=== PATIENT | female | born 2000 ===

== ENCOUNTER 2020-03-20 12:16 | Inpatient (IN) | payer MEDICAID ==
[2020-03-20] MEDS ORDERED: BUTORPHANOL 2 MG/1 ML INJ IV PRN ×2 (15:10)
[2020-03-20] MEDS ORDERED: ePHEDrine SULFATE 50 MG/1 ML INJ IV PRN (15:10)
[2020-03-20] MEDS ORDERED: MINERAL OIL 30 ML ORAL LIQD PO PRN (15:10)
[2020-03-20] MEDS ORDERED: LIDOCAINE (2%) 20 MG/1 ML VIAL 20 ML MDV INFILTRATI ONE (15:10)
[2020-03-20] MEDS ORDERED: fentaNYL 100 MCG/2 ML INJ IV PRN (15:10)
[2020-03-20] MEDS ORDERED: TERBUTALINE 1 MG/1 ML INJ SUB-Q PRN (15:10)
[2020-03-20] MEDS: LACTATED RINGERS 1,000 ML IV SCH (15:53)
[2020-03-20] MEDS ORDERED: OXYTOCIN DRIP 30 UNITS/500 ML BAG IV SCH ×2 (16:00)
[2020-03-20 16:13] LABS: Hematocrit 38.8 % (30.3-42.9); Hemoglobin 12.9 gm/dl (10.1-14.3); Mean Corpuscular HGB Conc 33 % (30-34); Mean Corpuscular Volume 87 fl (79-97); Platelet Count 226 K/mm3 (140-440); Red Blood Count 4.48 M/mm3 (3.65-5.03); Red Cell Distribution Width 15.8 % (13.2-15.2)
--- NOTE | 2020-03-20 18:03 | Consultation ---
Consult Note - Parent Education Parent(s) demonstrated understanding of all the information:: Yes Additional Comment: Called for consult for term baby with diagnosis of Trisomy 13 on Panorama. Imaging System Administrator line used: ID [id number]. Mother was with Aunt at the time of consult. Mother reports that she found out about trisomy 13 diagnosis yesterday and reports a previously negative genetic test. I described some of the typical features of trisomy 13 including small eyes, clenched fists and cleft palate, congenital heart defects that may require surgical intervention, seizures & apnea. We discussed typical survival of days to weeks with a very small percentage ~1% surviving up to 1 year and mother was already aware of this data. I discsussed the potential for unsuccessful delivery room stabilization depending on the severity of disease; NICU admission and potential for significant respiratory support, the need for further testing to confirm diagnosis and the need for a cardiac echo following delivery; the possibility of futility with attempts to support life. Mother demonstrated understanding of all the information - she was in tears, however stated that she understood and had no questions at this time. I encouraged her to reach out with any further questions Assessment and Plan - Assessment Baby's gender: Male - Plan Plan: NICU will attend delivery Please call NICU with questions
[2020-03-20] MEDS ORDERED: AMPICILLIN/NS 2 GM/100 ML 2 GM/100 ML BAG IV ONE ×2 (18:23)
--- NOTE | 2020-03-20 18:24 | History and Physical Report ---
History of Present Illness Date of examination: 03/20/20 Date of admission: 03/20/20 12:16 Chief complaint: "I was sent here by my doctor" History of present illness: 20 y/o female presented to [facility] L&D for an IOL r/t GDM, LGA, polyhydramnios, MO, and NIPT pos for trisomy 13. Pt states she was sent here by her provider at [facility] ob-automation and controls instructor [facility] location. Pt admitted to active . She initiated her pnc in [place], moved to [place] had 1 visit there and ended up at [facility] at 32 2/7 wks. 1st US was done in [place]. Pt has been co-managed by [facility] r/t to a pos NIPT trisomy 13, GDM diet controlled, LGA, MO, and Polyhydramnios. She was tx'd at [facility] for a uti pos for GBS, otherwise no other medical problems were noted. Surg/social hx unremarkable. Family hx of DM type 1. Pt was admitted to L&D for delivery. LABS: A pos AB screen neg Rubella Immune, RPR -NR, HIV neg Hgb 12.2 1 HR GTT 216 Urine GBS pos -tx'd Past History Past Medical History: no pertinent history Past Surgical History: no surgical history Family/Genetic History: diabetes Social history: no significant social history - Obstetrical History Expected Date of Delivery: 04/01/20 Actual Gestation: 38 Week(s) 2 Day(s) : 2 Para: 1 Hx # Term Pregnancies: 1 Medications and Allergies Allergies Allergy/AdvReac Type Severity Reaction Status Date / Time No Known Allergies Allergy Verified 03/20/20 13:35 Home Medications Medication Instructions Recorded Confirmed Last Taken Type Vitamin 1 tab PO DAILY 03/20/20 03/20/20 03/19/20 History Active Meds: Active Medications Butorphanol Tartrate (Butorphanol 2 Mg/1 Ml Inj) 1 mg IV Q2H PRN PRN Reason: Pain, Moderate(4-6) LABOR PAIN Butorphanol Tartrate (Butorphanol 2 Mg/1 Ml Inj) 2 mg IV Q2H PRN PRN Reason: Pain , Severe (7-10) Ephedrine Sulfate (Ephedrine Sulfate 50 Mg/1 Ml Inj) 10 mg IV Q2M PRN PRN Reason: Hypotension Fentanyl (Fentanyl 100 Mcg/2 Ml Inj) 100 mcg IV Q2H PRN PRN Reason: Pain,Severe (7-10) LABOR PAIN Oxytocin/Sodium Chloride (Pitocin/Ns 30 Unit/500ml) 30 units in 500 mls @ 2 mls/hr IV TITR MICA; Protocol Lactated Ringer's (Lactated Ringers) 1,000 mls @ 125 mls/hr IV DIRECT MICA Last Admin: 03/20/20 15:53 Dose: 125 mls/hr Documented by: Oxytocin/Sodium Chloride (Pitocin/Ns 30 Unit/500ml) 30 units in 500 mls @ 40 mls/hr IV TITR MICA; Protocol Mineral Oil (Mineral Oil 30 Ml Oral Liqd) 30 ml PO QHS PRN PRN Reason: Constipation Terbutaline Sulfate (Terbutaline 1 Mg/1 Ml Inj) 0.25 mg SUB-Q ONCE PRN PRN Reason: Hyperstimulation/Hypertonicity Review of Systems All systems: negative Eyes: deferred Ears, nose, mouth and throat: deferred Breasts: normal - Vital Signs Vital signs: Vital Signs Pulse Pulse Ox 106 H 98 03/20/20 12:57 03/20/20 12:57 Temp Pulse Resp BP Pulse Ox 99.1 F 116 H 18 126/83 97 03/20/20 13:35 03/20/20 17:50 03/20/20 13:35 03/20/20 17:43 03/20/20 17:50 - Physical Exam Breasts: Positive: normal Abdomen: Positive: normal appearance, soft, normal bowel sounds, other (gravid) Genitourinary (Female): Positive: normal external genitalia, normal perenium Vulva: both: normal Vagina: Positive: normal moisture Uterus: Positive: enlarged, normal contour, other (gravid) Adnexa: both: normal Anus/Rectum: Positive: normal perianal skin Extremities: Positive: normal - Obstetrical FHR: auscultation normal, category 1 Uterine Contraction Monitor Mode: External Cervical Dilatation: 5 Cervical Effacement Percentage: 75 station: -2 Uterine Contraction Frequency (min): q3-6/min Uterine Contraction Pattern: Regular Uterine Tone Measurement Phase: Resting Uterine Contraction Intensity: Mild Results Result Diagrams: 03/20/20 14:53 Abnormal lab results 03/20/20 Range/Units 14:53 RDW 15.8 H (13.2-15.2) % All other labs normal. Assessment and Plan A: IUP@ 38.2 wks GDM diet controlled LGA, polydramnios, Abnormal NIPT pos trisomy 13 + GBS urine, MO P: Admit to L&D Notify [facility] team of pt's admin Continuous monitoring Pain med/Epidural prn FSBS AC and HS GBS prophylaxis Anticipate POC was notified
[2020-03-20] MEDS ORDERED: ceFAZolin/NS 1 GM/50 ML 1 GM/50 ML BAG IV SCH (22:00)
[2020-03-20] MEDS: AMPICILLIN/NS 1 GM/50 ML 1 GM/50 ML BAG IV SCH (22:32)
[2020-03-20] MEDS ORDERED: ONDANSETRON 4 MG/2 ML INJ IV PRN (23:15)
[2020-03-20] MEDS ORDERED: diphenhydrAMINE 50 MG/ML VIAL IV PRN (23:15)
[2020-03-20] MEDS ORDERED: NALOXONE 2 MG/2 ML INJ IV PRN (23:15)
[2020-03-20] MEDS ORDERED: NalbUPHINE 10 MG/1 ML INJ IV PRN (23:15)
--- NOTE | 2020-03-20 23:44 | Anesthesia Consultation ---
Anesthesia Consult and Med Hx Date of service: 03/20/20 - Airway Anesthetic Teeth Evaluation: Good ROM Head & Neck: Adequate Mental/Hyoid Distance: Adequate Mallampati Class: Class II Intubation Access Assessment: Probably Good - Pulmonary Exam CTA: Yes - Cardiac Exam Cardiac Exam: RRR - Pre-Operative Health Status ASA Pre-Surgery Classification: ASA2 Proposed Anesthetic Plan: Epidural - Pulmonary Hx Smoking: No Hx Asthma: No COPD: No Hx Pneumonia: No Hx Sleep Apnea: No - Cardiovascular System Hx Hypertension: No Hx Heart Attack/AMI: No Hx Angina: No - Central Nervous System Hx Seizures: No Hx Psychiatric Problems: No - Gastrointestinal Hx Gastroesophageal Reflux Disease: No - Endocrine Hx Renal Disease: No Hx End Stage Renal Disease: No Hx Insulin Dependent Diabetes: No Hx Non-Insulin Dependent Diabetes: Yes Hx Hypothyroidism: No Hx Hyperthyroidism: No - Hematic Hx Anemia: No Hx Sickle Cell Disease: No - Other Systems Hx Alcohol Use: No
[2020-03-20] MEDS ORDERED: fentaNYL-BUPIV 2 MCG/ML-0.125% 200 MCG/100 ML BAG EPIDURAL SCH (23:45)
--- NOTE | 2020-03-20 23:45 | Progress Note ---
Labor Epidural - Labor Epidural Start Time: 23:20 Stop Time: 23:40 Performed by:: JENNY CASTILLO Procedure: Patient is requesting a laboring epidural for laboring pain. Patient IDed, H&P reviewed, all questions and concerns were answered, and consent was signed. Timeout was performed at bedside. Patient in sitting position. Sterile prep and drape was performed. 3ml of 1% lidocaine skin wheal at L[3]- L [4]. 18- gauge Touhy epidural needle was advanced to loss of resistance with air technique. Negative CSF negative blood. Epidural catheter advanced to [12] centimeters. [-] Aspiration [-] test dose. Sterile dressing applied. Patient tolerated procedure.
--- NOTE | 2020-03-21 00:07 | Progress Note ---
Assessment and Plan A: IUP@ 38.2 wks LGA, polyhydramnios + GBS, GDM p: Continue monitoring AROM (cl fluid) Anticipate Subjective - Subjective Date of service: 03/21/20 Principal diagnosis: IUP@ 38.2 wks Interval history: 20 y/o female presented to [facility] L&D for an IOL r/t GDM, LGA, polyhydramnios, MO, and NIPT pos for trisomy 13. Pt states she was sent here by her provider at [facility] ob-hand model [facility] location. Pt admitted to active . She initiated her pnc in [place], moved to [place] had 1 visit there and ended up at [facility] at 32 2/7 wks. 1st US was done in [place]. Pt has been co-managed by [facility] r/t to a pos NIPT trisomy 13, GDM diet controlled, LGA, MO, and Polyhydramnios. She was tx'd at [facility] for a uti pos for GBS, otherwise no other medical problems were noted. Surg/social hx unremarkable. Family hx of DM type 1. Pt was admitted to L&D for delivery. LABS: A pos AB screen neg Rubella Immune, RPR -NR, HIV neg Hgb 12.2 1 HR GTT 216 Urine GBS pos -tx'd Patient reports: movement normal Objective - Vital Signs Vital Signs: Vital Signs - 12hr 03/20/20 03/20/20 03/20/20 12:57 13:02 13:07 Temperature Pulse Rate 106 H 100 H 99 H Respiratory Rate Blood Pressure O2 Sat by Pulse 98 98 97 Oximetry 03/20/20 03/20/20 03/20/20 13:12 13:17 13:22 Temperature Pulse Rate 104 H 104 H 112 H Respiratory Rate Blood Pressure O2 Sat by Pulse 97 97 98 Oximetry 03/20/20 03/20/20 03/20/20 13:27 13:32 13:35 Temperature 99.1 F Pulse Rate 101 H 96 H Respiratory 18 Rate Blood Pressure O2 Sat by Pulse 97 97 Oximetry 03/20/20 03/20/20 03/20/20 13:37 13:42 13:47 Temperature Pulse Rate 105 H 104 H 103 H Respiratory Rate Blood Pressure O2 Sat by Pulse 97 96 96 Oximetry 01/07/21 01/07/21 01/07/21 13:52 13:57 14:02 Temperature Pulse Rate 101 H 98 H 109 H Respiratory Rate Blood Pressure O2 Sat by Pulse 96 97 98 Oximetry 03/20/20 03/20/20 03/20/20 14:07 14:12 14:17 Temperature Pulse Rate 96 H 101 H 98 H Respiratory Rate Blood Pressure O2 Sat by Pulse 97 97 97 Oximetry 03/20/20 03/20/20 03/20/20 14:22 14:27 14:32 Temperature Pulse Rate 92 H 100 H 94 H Respiratory Rate Blood Pressure O2 Sat by Pulse 99 98 98 Oximetry 03/20/20 03/20/20 03/20/20 14:37 14:38 14:44 Temperature Pulse Rate 95 H 74 Respiratory Rate Blood Pressure O2 Sat by Pulse 97 88 83 L Oximetry 03/20/20 03/20/20 03/20/20 14:49 14:51 14:58 Temperature Pulse Rate 105 H Respiratory Rate Blood Pressure 118/77 O2 Sat by Pulse 79 L 77 L Oximetry 03/20/20 03/20/20 03/20/20 15:08 15:35 15:40 Temperature Pulse Rate 95 H 90 107 H Respiratory Rate Blood Pressure O2 Sat by Pulse 0 L 99 97 Oximetry 03/20/20 03/20/20 03/20/20 15:43 15:45 15:50 Temperature Pulse Rate 102 H 103 H 107 H Respiratory Rate Blood Pressure 124/84 O2 Sat by Pulse 97 97 Oximetry 03/20/20 03/20/20 03/20/20 15:55 16:00 16:05 Temperature Pulse Rate 113 H 109 H 105 H Respiratory Rate Blood Pressure O2 Sat by Pulse 98 96 97 Oximetry 03/20/20 03/20/20 03/20/20 16:10 16:14 16:15 Temperature Pulse Rate 108 H 111 H 122 H Respiratory Rate Blood Pressure 125/79 O2 Sat by Pulse 97 94 96 Oximetry 03/20/20 03/20/20 03/20/20 16:20 16:25 16:30 Temperature Pulse Rate 119 H 115 H 98 H Respiratory Rate Blood Pressure O2 Sat by Pulse 97 97 97 Oximetry 03/20/20 03/20/20 03/20/20 16:35 16:40 16:43 Temperature Pulse Rate 116 H 110 H 107 H Respiratory Rate Blood Pressure 131/83 O2 Sat by Pulse 97 97 Oximetry 03/20/20 03/20/2003/20/21 16:45 16:50 16:55 Temperature Pulse Rate 104 H 99 H 103 H Respiratory Rate Blood Pressure O2 Sat by Pulse 97 97 96 Oximetry 03/20/20 03/20/20 03/20/20 17:00 17:05 17:10 Temperature Pulse Rate 121 H 110 H 97 H Respiratory Rate Blood Pressure O2 Sat by Pulse 97 96 99 Oximetry 03/20/20 03/20/20 03/20/20 17:12 17:13 17:15 Temperature Pulse Rate 103 H 106 H 108 H Respiratory Rate Blood Pressure 124/78 O2 Sat by Pulse 93 96 Oximetry 03/20/20 03/20/20 03/20/20 17:20 17:25 17:30 Temperature Pulse Rate 114 H 107 H 107 H Respiratory Rate Blood Pressure O2 Sat by Pulse 97 97 97 Oximetry 03/20/20 03/20/20 03/20/20 17:35 17:40 17:43 Temperature Pulse Rate 134 H 107 H 114 H Respiratory Rate Blood Pressure 126/83 O2 Sat by Pulse 95 97 Oximetry 03/20/20 03/20/20 03/20/20 17:45 17:50 17:55 Temperature Pulse Rate 99 H 116 H 103 H Respiratory Rate Blood Pressure O2 Sat by Pulse 97 97 98 Oximetry 03/20/20 03/20/20 03/20/20 18:00 18:05 18:10 Temperature Pulse Rate 118 H 109 H 116 H Respiratory Rate Blood Pressure O2 Sat by Pulse 98 97 97 Oximetry 03/20/20 03/20/20 03/20/20 18:13 18:15 18:20 Temperature Pulse Rate 107 H 113 H 101 H Respiratory Rate Blood Pressure 121/76 O2 Sat by Pulse 98 97 Oximetry 03/20/20 03/20/20 03/20/20 18:25 18:30 18:35 Temperature Pulse Rate 109 H 113 H 114 H Respiratory Rate Blood Pressure O2 Sat by Pulse 97 97 97 Oximetry 03/20/20 03/20/20 03/20/20 18:40 18:43 18:45 Temperature Pulse Rate 110 H 110 H 115 H Respiratory Rate Blood Pressure 176/88 O2 Sat by Pulse 97 98 Oximetry 03/20/20 03/20/20 03/20/20 18:50 18:55 19:00 Temperature Pulse Rate 115 H 121 H 108 H Respiratory Rate Blood Pressure 128/84 O2 Sat by Pulse 97 98 98 Oximetry 03/20/20 03/20/20 03/20/20 19:05 19:10 19:12 Temperature Pulse Rate 109 H 119 H 110 H Respiratory Rate Blood Pressure 123/82 O2 Sat by Pulse 97 97 Oximetry 03/20/20 03/20/20 03/20/20 19:15 19:20 19:25 Temperature 98.5 F Pulse Rate 106 H 110 H 113 H Respiratory Rate Blood Pressure O2 Sat by Pulse 97 97 97 Oximetry 03/20/20 03/20/20 03/20/20 19:30 19:35 19:40 Temperature Pulse Rate 110 H 116 H 108 H Respiratory Rate Blood Pressure O2 Sat by Pulse 97 98 97 Oximetry 03/20/20 03/20/20 03/20/20 19:42 19:45 19:50 Temperature Pulse Rate 105 H 113 H 106 H Respiratory Rate Blood Pressure 125/81 O2 Sat by Pulse 96 97 Oximetry 03/20/20 03/20/20 03/20/20 19:55 20:00 20:05 Temperature Pulse Rate 101 H 106 H 110 H Respiratory Rate Blood Pressure O2 Sat by Pulse 97 97 98 Oximetry 03/20/20 03/20/20 03/20/20 20:10 20:12 20:15 Temperature Pulse Rate 97 H 94 H 104 H Respiratory Rate Blood Pressure 127/85 O2 Sat by Pulse 98 98 Oximetry 03/20/20 03/20/20 03/20/20 20:20 20:25 20:30 Temperature Pulse Rate 101 H 107 H 106 H Respiratory Rate Blood Pressure O2 Sat by Pulse 98 98 96 Oximetry 03/20/20 03/20/20 03/20/20 20:35 20:40 20:44 Temperature Pulse Rate 100 H 102 H 104 H Respiratory Rate Blood Pressure 128/88 O2 Sat by Pulse 98 98 Oximetry 03/20/20 03/20/20 03/20/20 20:45 20:50 20:55 Temperature Pulse Rate 109 H 112 H 105 H Respiratory Rate Blood Pressure O2 Sat by Pulse 98 98 97 Oximetry 03/20/20 03/20/20 03/20/20 20:59 21:00 21:05 Temperature Pulse Rate 118 H 109 H 103 H Respiratory Rate Blood Pressure O2 Sat by Pulse 93 98 98 Oximetry 01/07/21 01/07/21 01/07/21 21:10 21:12 21:15 Temperature Pulse Rate 109 H 104 H 98 H Respiratory Rate Blood Pressure 133/88 O2 Sat by Pulse 98 98 Oximetry 03/20/20 03/20/20 03/20/20 21:20 21:25 21:30 Temperature Pulse Rate 120 H 99 H 104 H Respiratory Rate Blood Pressure O2 Sat by Pulse 98 98 98 Oximetry 03/20/20 03/20/20 03/20/20 21:35 21:40 21:44 Temperature Pulse Rate 109 H 102 H 101 H Respiratory Rate Blood Pressure 136/85 O2 Sat by Pulse 98 97 Oximetry 03/20/20 03/20/20 03/20/20 21:45 21:50 21:55 Temperature Pulse Rate 99 H 102 H 99 H Respiratory Rate Blood Pressure O2 Sat by Pulse 98 97 97 Oximetry 03/20/20 03/20/20 03/20/20 22:00 22:05 22:10 Temperature Pulse Rate 102 H 91 H 104 H Respiratory Rate Blood Pressure O2 Sat by Pulse 96 96 98 Oximetry 03/20/20 03/20/20 03/20/20 22:13 22:15 22:20 Temperature Pulse Rate 115 H 102 H 106 H Respiratory Rate Blood Pressure 130/87 O2 Sat by Pulse 94 97 98 Oximetry 03/20/20 03/20/20 03/20/20 22:25 22:30 22:35 Temperature Pulse Rate 103 H 95 H 101 H Respiratory Rate Blood Pressure O2 Sat by Pulse 97 98 99 Oximetry 03/20/20 03/20/20 03/20/20 22:40 22:43 22:45 Temperature Pulse Rate 106 H 97 H 101 H Respiratory Rate Blood Pressure 125/83 O2 Sat by Pulse 99 99 Oximetry 03/20/20 03/20/20 03/20/20 22:50 22:55 23:00 Temperature Pulse Rate 100 H 104 H 101 H Respiratory Rate Blood Pressure O2 Sat by Pulse 98 98 98 Oximetry 03/20/20 03/20/20 03/20/20 23:05 23:10 23:13 Temperature Pulse Rate 98 H 99 H 93 H Respiratory Rate Blood Pressure 127/81 O2 Sat by Pulse 99 99 Oximetry 03/20/20 03/20/20 03/20/20 23:15 23:19 23:20 Temperature Pulse Rate 110 H 54 L 69 Respiratory Rate Blood Pressure O2 Sat by Pulse 99 88 84 Oximetry 03/20/20 03/20/20 03/20/20 23:25 23:28 23:30 Temperature Pulse Rate 99 H 99 H 100 H Respiratory Rate Blood Pressure 123/81 121/79 O2 Sat by Pulse 99 99 Oximetry 03/20/20 03/20/20 03/20/20 23:32 23:34 23:35 Temperature Pulse Rate 104 H 107 H 98 H Respiratory Rate Blood Pressure 123/83 116/75 O2 Sat by Pulse 98 Oximetry 03/20/20 03/20/20 03/20/20 23:36 23:38 23:40 Temperature Pulse Rate 106 H 100 H 90 Respiratory Rate Blood Pressure 129/60 119/62 115/63 O2 Sat by Pulse 98 Oximetry 03/20/20 03/20/20 03/20/20 23:42 23:44 23:45 Temperature Pulse Rate 91 H 90 98 H Respiratory Rate Blood Pressure 116/63 111/59 O2 Sat by Pulse 97 Oximetry 03/20/20 03/20/20 03/20/20 23:46 23:48 23:50 Temperature Pulse Rate 100 H 98 H Respiratory Rate Blood Pressure 105/55 107/57 105/58 O2 Sat by Pulse 98 Oximetry 03/20/20 03/20/20 03/20/20 23:52 23:54 23:55 Temperature Pulse Rate 98 H 96 H 90 Respiratory Rate Blood Pressure 105/57 102/57 O2 Sat by Pulse 98 Oximetry 03/20/20 03/20/20 03/21/20 23:56 23:58 00:00 Temperature Pulse Rate 103 H 80 98 H Respiratory Rate Blood Pressure 98/56 110/60 105/59 O2 Sat by Pulse 98 Oximetry - Exam Breasts: normal Abdomen: Present: normal appearance, soft, other (GRAVID) Vulva: both: normal Uterus: Present: normal, other (GRAVID) FHR: auscultation normal Uterine Contraction Monitor Mode: External Cervical Dilatation: 8 Cervical Effacement Percentage: 100 station: -1 Uterine Contraction Frequency (min): Q2-3/min Uterine Contraction Pattern: Regular Uterine Tone Measurement Phase: Resting Uterine Contraction Intensity: Mild Extremities: normal - Labs Labs: Abnormal Labs 03/20/20 14:53 RDW 15.8 H Laboratory Results - last 24 hr 03/20/20 03/20/20 03/20/20 14:53 14:53 17:48 WBC 11.0 RBC 4.48 Hgb 12.9 Hct 38.8 MCV 87 MCH 29 MCHC 33 RDW 15.8 H Plt Count 226 POC Glucose 76 Blood Type A POSITIVE Antibody Screen Negative
[2020-03-21] MEDS: AMPICILLIN/NS 1 GM/50 ML 1 GM/50 ML BAG IV SCH ×5 (02:34→18:34)
--- NOTE | 2020-03-21 03:58 | Progress Note ---
Subjective - Subjective Date of service: 03/21/20 Principal diagnosis: IUP@ 38.2 wks Interval history: 20 y/o female presented to [facility] L&D for an IOL r/t GDM, LGA, polyhydramnios, MO, and NIPT pos for trisomy 13. Pt states she was sent here by her provider at [facility] location. Pt admitted to active . She initiated her pnc in [place], moved to [place] had 1 visit there and ended up at [facility] at 32 2/7 wks. 1st US was done in [place]. Pt has been co-managed by [facility] r/t to a pos NIPT trisomy 13, GDM diet controlled, LGA, MO, and Polyhydramnios. [facility] for a uti pos for GBS, otherwise no other medical problems were noted. Surg/social hx unremarkable. Family hx of DM type 1. Pt was admitted to L&D for delivery. LABS: A pos AB screen neg Rubella Immune, RPR -NR, HIV neg Hgb 12.2 1 HR GTT 216 Urine GBS pos -tx'd Patient reports: movement normal Objective - Vital Signs Vital Signs: Vital Signs - 12hr 03/20/20 03/20/20 03/20/20 15:40 15:43 15:45 Temperature Pulse Rate 107 H 102 H 103 H Blood Pressure 124/84 O2 Sat by Pulse 97 97 Oximetry 03/20/20 03/20/20 03/20/20 15:50 15:55 16:00 Temperature Pulse Rate 107 H 113 H 109 H Blood Pressure O2 Sat by Pulse 97 98 96 Oximetry 03/20/20 03/20/20 03/20/20 16:05 16:10 16:14 Temperature Pulse Rate 105 H 108 H 111 H Blood Pressure 125/79 O2 Sat by Pulse 97 97 94 Oximetry 03/20/20 03/20/20 03/20/20 16:15 16:20 16:25 Temperature Pulse Rate 122 H 119 H 115 H Blood Pressure O2 Sat by Pulse 96 97 97 Oximetry 03/20/20 03/20/20 03/20/20 16:30 16:35 16:40 Temperature Pulse Rate 98 H 116 H 110 H Blood Pressure O2 Sat by Pulse 97 97 97 Oximetry 03/20/20 03/20/20 03/20/20 16:43 16:45 16:50 Temperature Pulse Rate 107 H 104 H 99 H Blood Pressure 131/83 O2 Sat by Pulse 97 97 Oximetry 03/20/20 03/20/20 03/20/20 16:55 17:00 17:05 Temperature Pulse Rate 103 H 121 H 110 H Blood Pressure O2 Sat by Pulse 96 97 96 Oximetry 03/20/20 03/20/20 03/20/20 17:10 17:12 17:13 Temperature Pulse Rate 97 H 103 H 106 H Blood Pressure 124/78 O2 Sat by Pulse 99 93 Oximetry 03/20/20 03/20/20 03/20/20 17:15 17:20 17:25 Temperature Pulse Rate 108 H 114 H 107 H Blood Pressure O2 Sat by Pulse 96 97 97 Oximetry 03/20/20 03/20/20 03/20/20 17:30 17:35 17:40 Temperature Pulse Rate 107 H 134 H 107 H Blood Pressure O2 Sat by Pulse 97 95 97 Oximetry 03/20/20 03/20/20 03/20/20 17:43 17:45 17:50 Temperature Pulse Rate 114 H 99 H 116 H Blood Pressure 126/83 O2 Sat by Pulse 97 97 Oximetry 03/20/20 03/20/20 03/20/20 17:55 18:00 18:05 Temperature Pulse Rate 103 H 118 H 109 H Blood Pressure O2 Sat by Pulse 98 98 97 Oximetry 03/20/20 03/20/20 03/20/20 18:10 18:13 18:15 Temperature Pulse Rate 116 H 107 H 113 H Blood Pressure 121/76 O2 Sat by Pulse 97 98 Oximetry 03/20/20 03/20/20 03/20/20 18:20 18:25 18:30 Temperature Pulse Rate 101 H 109 H 113 H Blood Pressure O2 Sat by Pulse 97 97 97 Oximetry 03/20/20 03/20/20 03/20/20 18:35 18:40 18:43 Temperature Pulse Rate 114 H 110 H 110 H Blood Pressure 176/88 O2 Sat by Pulse 97 97 Oximetry 03/20/20 03/20/20 03/20/20 18:45 18:50 18:55 Temperature Pulse Rate 115 H 115 H 121 H Blood Pressure O2 Sat by Pulse 98 97 98 Oximetry 03/20/20 03/20/20 03/20/20 19:00 19:05 19:10 Temperature Pulse Rate 108 H 109 H 119 H Blood Pressure 128/84 O2 Sat by Pulse 98 97 97 Oximetry 03/20/20 03/20/20 03/20/20 19:12 19:15 19:20 Temperature 98.5 F Pulse Rate 110 H 106 H 110 H Blood Pressure 123/82 O2 Sat by Pulse 97 97 Oximetry 03/20/20 03/20/20 03/20/20 19:25 19:30 19:35 Temperature Pulse Rate 113 H 110 H 116 H Blood Pressure O2 Sat by Pulse 97 97 98 Oximetry 03/20/20 03/20/20 03/20/20 19:40 19:42 19:45 Temperature Pulse Rate 108 H 105 H 113 H Blood Pressure 125/81 O2 Sat by Pulse 97 96 Oximetry 03/20/20 03/20/20 03/20/20 19:50 19:55 20:00 Temperature Pulse Rate 106 H 101 H 106 H Blood Pressure O2 Sat by Pulse 97 97 97 Oximetry 03/20/20 03/20/20 03/20/20 20:05 20:10 20:12 Temperature Pulse Rate 110 H 97 H 94 H Blood Pressure 127/85 O2 Sat by Pulse 98 98 Oximetry 03/20/20 03/20/20 03/20/20 20:15 20:20 20:25 Temperature Pulse Rate 104 H 101 H 107 H Blood Pressure O2 Sat by Pulse 98 98 98 Oximetry 03/20/20 03/20/20 03/20/20 20:30 20:35 20:40 Temperature Pulse Rate 106 H 100 H 102 H Blood Pressure O2 Sat by Pulse 96 98 98 Oximetry 03/20/20 03/20/20 03/20/20 20:44 20:45 20:50 Temperature Pulse Rate 104 H 109 H 112 H Blood Pressure 128/88 O2 Sat by Pulse 98 98 Oximetry 03/20/20 03/20/20 03/20/20 20:55 20:59 21:00 Temperature Pulse Rate 105 H 118 H 109 H Blood Pressure O2 Sat by Pulse 97 93 98 Oximetry 03/20/20 03/20/20 03/20/20 21:05 21:10 21:12 Temperature Pulse Rate 103 H 109 H 104 H Blood Pressure 133/88 O2 Sat by Pulse 98 98 Oximetry 03/20/20 03/20/20 03/20/20 21:15 21:20 21:25 Temperature Pulse Rate 98 H 120 H 99 H Blood Pressure O2 Sat by Pulse 98 98 98 Oximetry 03/20/20 03/20/20 03/20/20 21:30 21:35 21:40 Temperature Pulse Rate 104 H 109 H 102 H Blood Pressure O2 Sat by Pulse 98 98 97 Oximetry 03/20/20 03/20/20 03/20/20 21:44 21:45 21:50 Temperature Pulse Rate 101 H 99 H 102 H Blood Pressure 136/85 O2 Sat by Pulse 98 97 Oximetry 03/20/20 03/20/20 03/20/20 21:55 22:00 22:05 Temperature Pulse Rate 99 H 102 H 91 H Blood Pressure O2 Sat by Pulse 97 96 96 Oximetry 03/20/20 03/20/20 03/20/20 22:10 22:13 22:15 Temperature Pulse Rate 104 H 115 H 102 H Blood Pressure 130/87 O2 Sat by Pulse 98 94 97 Oximetry 03/20/20 03/20/20 03/20/20 22:20 22:25 22:30 Temperature Pulse Rate 106 H 103 H 95 H Blood Pressure O2 Sat by Pulse 98 97 98 Oximetry 03/20/20 03/20/20 03/20/20 22:35 22:40 22:43 Temperature Pulse Rate 101 H 106 H 97 H Blood Pressure 125/83 O2 Sat by Pulse 99 99 Oximetry 03/20/20 03/20/20 03/20/20 22:45 22:50 22:55 Temperature Pulse Rate 101 H 100 H 104 H Blood Pressure O2 Sat by Pulse 99 98 98 Oximetry 03/20/20 03/20/20 03/20/20 23:00 23:05 23:10 Temperature Pulse Rate 101 H 98 H 99 H Blood Pressure O2 Sat by Pulse 98 99 99 Oximetry 03/20/20 03/20/20 03/20/20 23:13 23:15 23:19 Temperature Pulse Rate 93 H 110 H 54 L Blood Pressure 127/81 O2 Sat by Pulse 99 88 Oximetry 03/20/20 03/20/20 03/20/20 23:20 23:25 23:28 Temperature Pulse Rate 69 99 H 99 H Blood Pressure 123/81 O2 Sat by Pulse 84 99 Oximetry 03/20/20 03/20/20 03/20/20 23:30 23:32 23:34 Temperature Pulse Rate 100 H 104 H 107 H Blood Pressure 121/79 123/83 116/75 O2 Sat by Pulse 99 Oximetry 03/20/20 03/20/20 03/20/20 23:35 23:36 23:38 Temperature Pulse Rate 98 H 106 H 100 H Blood Pressure 129/60 119/62 O2 Sat by Pulse 98 Oximetry 03/20/20 03/20/20 03/20/20 23:40 23:42 23:44 Temperature Pulse Rate 90 91 H 90 Blood Pressure 115/63 116/63 111/59 O2 Sat by Pulse 98 Oximetry 03/20/20 03/20/20 03/20/20 23:45 23:46 23:48 Temperature Pulse Rate 98 H 100 H Blood Pressure 105/55 107/57 O2 Sat by Pulse 97 Oximetry 03/20/20 03/20/20 03/20/20 23:50 23:52 23:54 Temperature Pulse Rate 98 H 98 H 96 H Blood Pressure 105/58 105/57 102/57 O2 Sat by Pulse 98 Oximetry 03/20/20 03/20/20 03/20/20 23:55 23:56 23:58 Temperature Pulse Rate 90 103 H 80 Blood Pressure 98/56 110/60 O2 Sat by Pulse 98 Oximetry 03/21/20 03/21/20 03/21/20 00:00 00:02 00:04 Temperature Pulse Rate 98 H 104 H 93 H Blood Pressure 105/59 101/55 101/58 O2 Sat by Pulse 98 Oximetry 03/21/20 03/21/20 03/21/20 00:05 00:06 00:08 Temperature Pulse Rate 102 H 93 H 94 H Blood Pressure 99/53 100/53 O2 Sat by Pulse 97 Oximetry 03/21/20 03/21/20 03/21/20 00:10 00:12 00:14 Temperature Pulse Rate 87 90 84 Blood Pressure 104/54 98/51 99/52 O2 Sat by Pulse 97 Oximetry 03/21/20 03/21/20 03/21/20 00:15 00:16 00:18 Temperature Pulse Rate 90 84 85 Blood Pressure 105/54 106/58 O2 Sat by Pulse 97 Oximetry 03/21/20 03/21/20 03/21/20 00:20 00:22 00:24 Temperature Pulse Rate 89 84 81 Blood Pressure 103/55 99/57 106/56 O2 Sat by Pulse 96 Oximetry 03/21/20 03/21/20 03/21/20 00:25 00:26 00:28 Temperature Pulse Rate 94 H 83 92 H Blood Pressure 97/53 98/57 O2 Sat by Pulse 97 Oximetry 03/21/20 03/21/20 03/21/20 00:30 00:32 00:34 Temperature Pulse Rate 97 H 90 88 Blood Pressure 101/57 103/58 104/58 O2 Sat by Pulse 90 Oximetry 03/21/20 03/21/20 03/21/20 00:35 00:36 00:38 Temperature Pulse Rate 90 89 93 H Blood Pressure 96/52 100/58 O2 Sat by Pulse 97 Oximetry 03/21/20 03/21/20 03/21/20 00:40 00:42 00:44 Temperature Pulse Rate 94 H 93 H 91 H Blood Pressure 99/54 103/56 97/53 O2 Sat by Pulse 99 Oximetry 03/21/20 03/21/20 03/21/20 00:45 00:46 00:48 Temperature Pulse Rate 93 H 100 H 96 H Blood Pressure 103/59 103/63 O2 Sat by Pulse 99 Oximetry 03/21/20 03/21/20 03/21/20 00:50 00:52 00:54 Temperature Pulse Rate 92 H 90 83 Blood Pressure 102/72 103/56 106/57 O2 Sat by Pulse 100 Oximetry 03/21/20 03/21/20 03/21/20 00:55 00:56 00:58 Temperature Pulse Rate 94 H 86 101 H Blood Pressure 107/57 106/60 O2 Sat by Pulse 98 Oximetry 03/21/20 03/21/20 03/21/20 00:59 01:00 01:02 Temperature Pulse Rate 95 H 89 90 Blood Pressure 107/58 107/58 O2 Sat by Pulse 92 98 Oximetry 03/21/20 03/21/20 03/21/20 01:04 01:06 01:11 Temperature Pulse Rate 89 97 H 92 H Blood Pressure 110/64 O2 Sat by Pulse 99 98 Oximetry 03/21/20 03/21/20 03/21/20 01:16 01:21 01:26 Temperature Pulse Rate 87 95 H 86 Blood Pressure O2 Sat by Pulse 99 98 100 Oximetry 03/21/20 03/21/20 03/21/20 01:31 01:36 01:40 Temperature Pulse Rate 95 H 90 95 H Blood Pressure 105/64 O2 Sat by Pulse 100 99 Oximetry 03/21/20 03/21/20 03/21/20 01:41 01:46 01:51 Temperature Pulse Rate 91 H 97 H 96 H Blood Pressure O2 Sat by Pulse 99 98 98 Oximetry 03/21/20 03/21/20 03/21/20 01:56 02:01 02:06 Temperature Pulse Rate 97 H 94 H 91 H Blood Pressure O2 Sat by Pulse 98 99 99 Oximetry 03/21/20 03/21/20 03/21/20 02:11 02:16 02:21 Temperature Pulse Rate 106 H 105 H 97 H Blood Pressure O2 Sat by Pulse 100 99 98 Oximetry 03/21/20 03/21/20 03/21/20 02:26 02:31 02:36 Temperature Pulse Rate 97 H 102 H 105 H Blood Pressure O2 Sat by Pulse 99 97 98 Oximetry 03/21/20 03/21/20 03/21/20 02:41 02:46 02:51 Temperature Pulse Rate 103 H 100 H 102 H Blood Pressure O2 Sat by Pulse 98 98 99 Oximetry 03/21/20 03/21/20 03/21/20 02:56 03:01 03:06 Temperature Pulse Rate 88 93 H 91 H Blood Pressure O2 Sat by Pulse 97 97 99 Oximetry 03/21/20 03/21/20 03/21/20 03:11 03:16 03:21 Temperature Pulse Rate 85 105 H 90 Blood Pressure O2 Sat by Pulse 99 99 98 Oximetry 03/21/20 03/21/20 03/21/20 03:26 03:31 03:36 Temperature Pulse Rate 89 94 H 99 H Blood Pressure O2 Sat by Pulse 99 98 99 Oximetry - Exam Breasts: deferred Abdomen: Present: normal appearance, soft, other (gravid) Vulva: both: normal Uterus: Present: normal, other (gravid) FHR: category 1 Uterine Contraction Monitor Mode: External Cervical Dilatation: 10 Cervical Effacement Percentage: 100 station: -1 Uterine Contraction Frequency (min): q2-3 Uterine Contraction Pattern: Regular Uterine Tone Measurement Phase: Resting Uterine Contraction Intensity: Strong/Firm Extremities: normal - Labs Labs: Abnormal Labs 03/20/20 14:53 RDW 15.8 H Laboratory Results - last 24 hr 03/20/20 03/20/20 03/20/20 14:53 14:53 17:48 WBC 11.0 RBC 4.48 Hgb 12.9 Hct 38.8 MCV 87 MCH 29 MCHC 33 RDW 15.8 H Plt Count 226 POC Glucose 76 Blood Type A POSITIVE Antibody Screen Negative
--- NOTE | 2020-03-21 04:00 | Event Note ---
Date: 03/21/20 FHT 130 with mod kizzy neg decels pos accels noted. UC q 2-3 per min with Pitocin. SVE 10/100%/-1 x 2 hr with molding noted. Pt was advised via Portuguese interpretor to notify staff if she dev vag pressure or urge to push. IUPC was placed to assess for adq uc. Dr Roa was notified of pt's condition. Will continue monitoring and reasses in 1 hr or earlier.
--- NOTE | 2020-03-21 07:38 | Event Note ---
Date: 03/21/20 FHT 128 with mod kizzy neg decels pos accels. UC q 2-3 per min, MVUs 105. Pitocin @ 2 mu; SVE 10/100%/0. Pt denies increased vag pressure or urge to push. Practice pushes attempted. Will continue monitoring and let pt labor down. Dr Roa made aware.
[2020-03-21] MEDS ORDERED: ACETAMINOPHEN 325 MG TAB PO NR (08:00)
[2020-03-21] MEDS ORDERED: GENTAMICIN 40 MG/ML VIAL 2 ML IV SCH (08:10)
[2020-03-21] MEDS ORDERED: LIDOCAINE 2%/EPINEPHRINE 1:200,000 VIAL (20 ML) INFILTRATI ONE (08:54)
[2020-03-21] MEDS ORDERED: ONDANSETRON 4 MG/2 ML INJ ONE (08:57)
[2020-03-21] MEDS ORDERED: KETOROLAC 30 MG/1 ML INJ ONE (08:58)
--- NOTE | 2020-03-21 09:24 | Event Note ---
Date: 03/21/20 arrest of second stage Now with superimposed chorioamnionitis plan for operative delivery Informed consent obtained with Lvn over the phone Marlena Monaco MD
--- NOTE | 2020-03-21 09:49 | Procedure Note ---
OB Delivery Note - Delivery Date of Delivery: 03/21/20 Surgeon: HUMBERTO MOTLEY Reinforcing Metal Worker: LUIS MAYA JR Estimated blood loss: other (2500ml) - Section Preop diagnosis: arrest of descent, other (chorioamnionitis,GDM, LGA, polyhydramnios, MO, and NIPT pos for trisomy 13) Postop diagnosis: other (delivered, Early DIC with intraopertive hemorrhage and uterine atony) section procedure: other Disposition: PACU Complications: intra-op hemorrhage, uterine atony, other (early DIC) Narrative: Preop diagnosis: IUP at38.3 weeks, arrest of descent, chorioamnionitis, LGA, polyhydramnios, trisomy 13+ on noninvasive testing Postop diagnosis: Same,Early DIC with intraoperative hemorrhage and uterine atony refractory to medical therapy. Procedure: hysterectomy with right salpingo-oophorectomy Surgeon: Dr. Humberto Motley Reinforcing Metal Worker: Dr. Luis Maya Anesthesia epidural converted to general endotracheal Complications uterine atony unresponsive to medical therapy, early DIC with intraoperative hemorrhage EBL 2500 ml IV fluids 3 L crystalloid, 2 units PRBCs Urine output 300mL, blood-tinged from trauma to the urethra Drains Rivas to gravity Findings: Viable male with weight and pending, severe uterine atony r equiring lifesaving measures. Procedure: Patient was consented in 2009 taken to the operating room where excellent epidural anesthesia was verified. She was then placed in the dorsal supine position with a leftward tilt. The abdomen was prepped and draped in a sterile fashion, and a timeout was verified. Adequate anesthesia was confirmed prior to the skin incision. A Pfannenstiel skin incision was made with a scalpel taken down to the underlying structures and the fascia was incised in the midline. The incision was extended laterally with curved Gallo scissors, the superior and inferior aspects of the fascial incisions were grasped with Tala clamps and the rectus muscles dissected sharply. The abdomen was entered bluntly in the midline carried down inferiorly with good visualization of the bladder. The vesicouterine peritoneum was tented with Australian forceps and incised in the midline with Metzenbaum scissors and the vesicouterine peritoneum taken down sharply. Bladder blade was inserted, the uterine incision was made sharply with a scalpel. The inferior and superior aspect of the uterine incisions were extended bluntly, the baby's head was delivered atraumatically. The remainder of the delivery was uneventful, no nuchal cord noted at delivery. The cord was clamped and cut and baby handed to waiting NICU team. An intact placenta with three-vessel cord delivered manually. The uterus was then cleared of all clots and debris and the uterus exteriorized. The uterine incision was closed with 2 layers of 0 chromic with excellent hemostasis. The uterus was noted to be boggy. PAtient had refractory uterine atony despite 3 doses of Methergine 0.2 mg IM, she received 2 doses of Hemabate, she received 800 mcg of Cytotec rectally, she received 10 units of oxytocin IM, she received oxytocin and her IV fluids per protocol. At this time estimated blood loss around 1800 mL. I made the decision to take out her uterus. I called for Dr. Maya. We proceeded with hysterectomy with right salpingo-oophorectomy without complication. THe right fallopian tube and ovary were noted to be bleeding and not salvageable. At this point I suspected early DIC due to copious serosanguineous blood with no intra-abdominal blood clots. I called for FFP and platelets. The vaginal cuff was closed with interrupted 0 Vicryl suture. The pedicels were noted to be hemostatic. Hemoblast was applied at the vaginal cuff. The peritoneum was closed with 3-0 Vicryl, the rectus muscles approximated with 3-0 Vicryl, and the fascia closed with 0 Vicryl in the usual fashion. The subcuticular structures were closed with interrupted sutures of 3- 0 Vicryl and the skin closed with bisi. A pressure dressing was applied. All sponge needle and instrument counts were correct x2. There were no complications. Mom to the ICU and baby to NICU in stable condition. Patient's family was notified of her status. EBL 2500mL Marlena Motley MD
--- NOTE | 2020-03-21 09:50 | Anesthesia Day of Surgery ---
Anesthesia Day of Surgery - Day of Surgery Patient Examined: Yes Patient H&P Reviewed: Yes Patient is NPO: Yes Beta Blockers: No Cardiac Clearance: No Pulmonary Clearance: No Jason's Test: N/A
[2020-03-21] MEDS ORDERED: FAMOTIDINE 20 MG/2 ML INJ IV SCH (10:00)
[2020-03-21] MEDS ORDERED: PROMETHAZINE 25 MG RECT SUPP PR PRN (10:00)
[2020-03-21] MEDS ORDERED: BICITRA ORAL LIQD 30ML PO SCH (10:00)
[2020-03-21] MEDS ORDERED: METOCLOPRAMIDE 10 MG/2 ML INJ IV SCH (10:00)
[2020-03-21] MEDS ORDERED: LACTATED RINGERS 1,000 ML IV SCH (10:00)
[2020-03-21] MEDS ORDERED: ceFAZolin/Water 2 GM/20 ML 2 GM/20 ML SYRINGE IV NR (10:00)
[2020-03-21] MEDS ORDERED: PROMETHAZINE 25 MG TAB PO PRN (10:00)
[2020-03-21] MEDS ORDERED: OXYTOCIN DRIP 30 UNITS/500 ML BAG IV SCH (10:00)
[2020-03-21] MEDS ORDERED: miSOPROStol 200 MCG TAB PR SCH (10:00)
[2020-03-21] MEDS ORDERED: CARBOPROST TROMETHAMINE 250 MCG/1 ML INJ IM SCH (10:00)
[2020-03-21] MEDS ORDERED: SODIUM CHLORIDE 0.9% IRR 1,500 ML BOTTLE IR ONE (10:30)
[2020-03-21] MEDS ORDERED: WATER FOR IRRIG STERILE 1,500 ML BOTTLE IR ONE (10:32)
[2020-03-21] MEDS ORDERED: METHYLERGONOVINE MALEATE 0.2 MG/ML VIAL IM ONE ×5 (10:35→12:54)
[2020-03-21] MEDS ORDERED: CARBOPROST TROMETHAMINE 250 MCG/1 ML INJ IM ONE ×2 (10:43→12:54)
[2020-03-21] MEDS ORDERED: miSOPROStol 200 MCG TAB ONE (10:43)
[2020-03-21] MEDS: GENTAMICIN 140 MG in SODIUM CHLORIDE 0.9% 100 ML IV SCH ×2 (10:45→18:33)
[2020-03-21] MEDS ORDERED: miSOPROStol 200 MCG TAB PR ONE (10:50)
[2020-03-21] MEDS ORDERED: KETAMINE/STERILE WATER 50 MG/ML SYRINGE ONE (10:51)
[2020-03-21] MEDS ORDERED: DIPHENOXYLATE/ATROPINE TAB ONE (10:57)
[2020-03-21] MEDS ORDERED: SODIUM CHLORIDE 0.9% 500 ML 500 ML IV SCH ×3 (11:00→12:00)
[2020-03-21] MEDS ORDERED: LOPERAMIDE 2 MG CAP PO PRN (11:00)
[2020-03-21] MEDS ORDERED: SUCCINYLCHOLINE CHLORIDE 200 MG/10 ML INJ MDV ONE (11:05)
[2020-03-21] MEDS ORDERED: propofoL 200 MG/20 ML VIAL IV ONE (11:05)
[2020-03-21] MEDS ORDERED: LIDOCAINE MPF (2%) 20 MG/1 ML VIAL 5 ML ONE (11:05)
[2020-03-21] MEDS ORDERED: ePHEDrine SULFATE 50 MG/1 ML INJ ONE (11:13)
[2020-03-21] MEDS ORDERED: PHENYLEPHRINE 10 MG/1 ML INJ SDV ONE (11:13)
[2020-03-21 11:15] LABS: Basophils % (Auto) 0.2 % (0.0-1.8); Hematocrit 30.2 % (30.3-42.9); Hemoglobin 10.6 gm/dl (10.1-14.3); Lymphocytes # (Auto) 2.3 K/mm3 (1.2-5.4); Lymphocytes % (Auto) 14.7 % (13.4-35.0); Mean Corpuscular HGB Conc 35 % (30-34); Mean Corpuscular Volume 87 fl (79-97); Monocytes # (Auto) 1.1 K/mm3 (0.0-0.8); Monocytes % (Auto) 7.4 % (0.0-7.3); Platelet Count 183 K/mm3 (140-440); Red Blood Count 3.47 M/mm3 (3.65-5.03); Red Cell Distribution Width 16.1 % (13.2-15.2)
[2020-03-21] MEDS ORDERED: MORPHINE PF 10MG/10 ML AMPULE ONE (11:27)
[2020-03-21] MEDS ORDERED: ESMOLOL 100 MG/10 ML INJ IV ONE (11:30)
[2020-03-21] MEDS ORDERED: ceFAZolin 1 GM VIAL ONE (11:58)
[2020-03-21] MEDS ORDERED: LACTATED RINGERS 2,000 ML ONE (12:24)
[2020-03-21] MEDS ORDERED: SODIUM CHLORIDE 0.9% 500 ML 1,000 ML ONE (12:24)
[2020-03-21 12:26] LABS: Partial Thromboplastin Time 26.1 Sec. (24.2-36.6)
[2020-03-21 12:27] LABS: INR 1.05 (0.87-1.13)
[2020-03-21] MEDS ORDERED: OXYTOCIN 10 UNIT/1 ML INJ ONE (12:29)
[2020-03-21] MEDS ORDERED: DIPHENOXYLATE/ATROPINE TAB PO PRN (12:54)
--- NOTE | 2020-03-21 13:50 | Consultation ---
History of Present Illness - Reason for Consult Consult date: 03/21/20 Medical Management Requesting physician: HUMBERTO MOTLEY - History of Present Illness 20 YO Female . Consult placed S/P SOHAIL by Dr. Motley for medical management. Pt transferred to ICU for suspected DIC. Patient seen and evaluated upon arrival to her room. Patient appears comfortable, and in no acute distress. No reported nursing events. No active bleeding. Past History Past Medical History: No medical history Past Surgical History: hysterectomy Social history: single Family history: no significant family history Medications and Allergies Allergies Allergy/AdvReac Type Severity Reaction Status Date / Time No Known Allergies Allergy Verified 03/20/20 13:35 Home Medications Medication Instructions Recorded Confirmed Last Taken Type Vitamin 1 tab PO DAILY 03/20/20 03/20/20 03/19/20 History Active Meds: Active Medications Butorphanol Tartrate (Butorphanol 2 Mg/1 Ml Inj) 1 mg IV Q2H PRN PRN Reason: Pain, Moderate(4-6) LABOR PAIN Butorphanol Tartrate (Butorphanol 2 Mg/1 Ml Inj) 2 mg IV Q2H PRN PRN Reason: Pain , Severe (7-10) Citric Acid/Sodium Citrate (Bicitra Oral Liqd 30ml) 30 ml PO ONCE MICA Stop: 03/21/20 21:00 Last Admin: 03/21/20 10:02 Dose: 30 ml Documented by: Diphenhydramine HCl (Diphenhydramine 50 Mg/Ml Vial) 12.5 mg IV Q2H PRN PRN Reason: Itching Diphenoxylate HCl/Atropine (Diphenoxylate/Atropine Tab) 1 tab PO Q6H PRN PRN Reason: Diarrhea Ephedrine Sulfate (Ephedrine Sulfate 50 Mg/1 Ml Inj) 10 mg IV Q2M PRN PRN Reason: Hypotension Famotidine (Famotidine 20 Mg/2 Ml Inj) 20 mg IV ONCE MICA Stop: 03/21/20 21:00 Last Admin: 03/21/20 10:02 Dose: 20 mg Documented by: Fentanyl (Fentanyl 100 Mcg/2 Ml Inj) 100 mcg IV Q2H PRN PRN Reason: Pain,Severe (7-10) LABOR PAIN Hydromorphone HCl (Hydromorphone 1 Mg/1 Ml Inj) 0.5 mg IV Q4H PRN PRN Reason: breakthrough pain > 7/10 Lactated Ringer's (Lactated Ringers) 1,000 mls @ 125 mls/hr IV DIRECT MICA Last Admin: 03/20/20 15:53 Dose: 125 mls/hr Documented by: Oxytocin/Sodium Chloride (Pitocin/Ns 30 Unit/500ml) 30 units in 500 mls @ 40 mls/hr IV TITR MICA; Protocol Ampicillin Sodium (Ampicillin/Ns 1 Gm/50 Ml) 1 gm in 50 mls @ 100 mls/hr IV Q4H MICA; Protocol Last Admin: 03/21/20 07:13 Dose: 100 mls/hr Documented by: Fentanyl/Bupivacaine/Sodium Chlor (Fentanyl-Bupiv 2 Mcg/Ml-0.125%) 200 mcg in 100 mls @ 12 mls/hr EPIDURAL TITR MICA; Protocol Gentamicin Sulfate 140 mg/ (Sodium Chloride) 103.5 mls @ 200 mls/hr IV Q8H MICA Last Admin: 03/21/20 10:45 Dose: 200 mls/hr Documented by: Lactated Ringer's (Lactated Ringers) 1,000 mls @ 2,250 mls/hr IV PREOP MICA Stop: 03/22/20 10:27 Oxytocin/Sodium Chloride (Pitocin/Ns 30 Unit/500ml) 30 units in 500 mls @ 0 mls/hr IV TITR MICA; Protocol Cefazolin Sodium (Ancef/Sterile Water 2 Gm/20 Ml) 2 gm in 20 mls @ 80 mls/hr IV PREOP NR; Protocol Stop: 03/21/20 21:00 Sodium Chloride (Nacl 0.9% 500 Ml) 500 mls @ 0 mls/hr IV ONCE MICA Stop: 03/21/20 18:00 Sodium Chloride (Nacl 0.9% 500 Ml) 500 mls @ 0 mls/hr IV ONCE MICA Stop: 03/21/20 19:00 Sodium Chloride (Nacl 0.9% 500 Ml) 500 mls @ 0 mls/hr IV ONCE MICA Stop: 03/21/20 20:00 Loperamide HCl (Loperamide 2 Mg Cap) 2 mg PO Q2H PRN PRN Reason: Diarrhea Metoclopramide HCl (Metoclopramide 10 Mg/2 Ml Inj) 10 mg IV ONCE MICA Stop: 03/21/20 21:00 Last Admin: 03/21/20 10:02 Dose: 10 mg Documented by: Mineral Oil (Mineral Oil 30 Ml Oral Liqd) 30 ml PO QHS PRN PRN Reason: Constipation Nalbuphine HCl (Nalbuphine 10 Mg/1 Ml Inj) 2.5 mg IV Q2H PRN PRN Reason: Itching Naloxone HCl (Naloxone 2 Mg/2 Ml Inj) 0.2 mg IV Q5M PRN PRN Reason: Respiratory sedation Ondansetron HCl (Ondansetron 4 Mg/2 Ml Inj) 4 mg IV Q8H PRN PRN Reason: Nausea And Vomiting Promethazine HCl (Promethazine 25 Mg Tab) 25 mg PO Q6H PRN PRN Reason: Nausea And Vomiting Promethazine HCl (Promethazine 25 Mg Rect Supp) 25 mg NC Q6H PRN PRN Reason: Nausea And Vomiting Terbutaline Sulfate (Terbutaline 1 Mg/1 Ml Inj) 0.25 mg SUB-Q ONCE PRN PRN Reason: Hyperstimulation/Hypertonicity Review of Systems Constitutional: no weight loss, no weight gain Ears, nose, mouth and throat: no ear pain, no ear discharge, no decreased hearing, no nose pain Breasts: no change in shape, no swelling, no mass Cardiovascular: no chest pain, no orthopnea, no palpitations Respiratory: no cough, no cough with sputum, no hemoptysis, no shortness of breath Gastrointestinal: no nausea, no vomiting, no diarrhea Rectal: no pain, no incontinence, no bleeding Musculoskeletal: no neck stiffness, no neck pain, no shooting arm pain, no arm numbness/tingling, no low back pain Integumentary: no rash, no pruritis, no redness, no sores, no wounds, no jaundice Neurological: no paralysis, no weakness, no parathesias Psychiatric: no anxiety, no change in sleep habits, no sleep disturbances, no hypersomnia, no change in appetite Endocrine: no cold intolerance, no polyphagia, no excessive thirst, no polydipsia Hematologic/Lymphatic: no easy bruising Allergic/Immunologic: no urticaria, no allergic rhinitis Exam - Constitutional Vitals: Temp Pulse Resp BP Pulse Ox 98.3 F 96 H 18 133/86 99 03/21/20 06:15 03/21/20 07:42 03/20/20 13:35 03/21/20 07:42 03/21/20 04:06 General appearance: Present: mild distress - EENT Eyes: Present: PERRL ENT: hearing intact, clear oral mucosa - Neck Neck: Present: supple, normal ROM - Respiratory Respiratory effort: normal Respiratory: bilateral: CTA - Cardiovascular Heart Sounds: Present: S1 & S2. Absent: rub, click - Extremities Extremities: pulses symmetrical, No edema Peripheral Pulses: within normal limits - Abdominal General gastrointestinal: Present: soft, tender (Appropriately tender), normal bowel sounds Female genitourinary: Present: normal - Integumentary Integumentary: Present: clear, warm, dry - Musculoskeletal Musculoskeletal: gait normal, strength equal bilaterally - Psychiatric Psychiatric: appropriate mood/affect, intact judgment & insight - Neurologic Neurologic: CNII-XII intact, moves all extremities Results - Labs CBC & Chem 7: 03/21/20 14:46 03/21/20 14:46 Labs: Abnormal lab results 03/20/20 03/20/20 03/21/20 Range/Units 14:53 14:53 11:05 WBC 15.4 H (4.5-11.0) K/mm3 RBC 3.47 L (3.65-5.03) M/mm3 Hct 30.2 L D (30.3-42.9) % MCHC 35 H (30-34) % RDW 15.8 H 16.1 H (13.2-15.2) % [place] % (Auto) 7.4 H (0.0-7.3) % [place] # (Auto) 1.1 H (0.0-0.8) K/mm3 Seg Neutrophils % 77.7 H (40.0-70.0) % Seg Neutrophils # 12.0 H (1.8-7.7) K/mm3 Fibrinogen (211-480) mg/dl Crossmatch See Detail 03/21/20 Range/Units 11:05 WBC (4.5-11.0) K/mm3 RBC (3.65-5.03) M/mm3 Hct (30.3-42.9) % MCHC (30-34) % RDW (13.2-15.2) % [place] % (Auto) (0.0-7.3) % [place] # (Auto) (0.0-0.8) K/mm3 Seg Neutrophils % (40.0-70.0) % Seg Neutrophils # (1.8-7.7) K/mm3 Fibrinogen 543 H (211-480) mg/dl Crossmatch Assessment and Plan - Patient Problems (1) DIC (disseminated intravascular coagulation) Current Visit: Yes Status: Suspected Plan to address problem: DIC panel, supportive care, continue medical management, critical care team consulted.
--- NOTE | 2020-03-21 13:50 | Event Note ---
Date: 03/21/20 Transfer order to ICU placed. Awaiting arrival to ICU. Discussed with Critical care team.
--- NOTE | 2020-03-21 14:08 | Consultation ---
History of Present Illness Consult date: 03/21/20 Requesting physician: JULIA WARD Reason for consult: other (Acute Blood Loss Anemia (? DIC)) History of present illness: PULMONARY/CCM CONSULT NOTE (Full dictation # [id number]) Please see dictated notes for full details Past History Social history: no significant social history Medications and Allergies Allergies Allergy/AdvReac Type Severity Reaction Status Date / Time No Known Allergies Allergy Verified 03/20/20 13:35 Home Medications Medication Instructions Recorded Confirmed Last Taken Type Vitamin 1 tab PO DAILY 03/20/20 03/20/20 03/19/20 History Active Meds: Active Medications Butorphanol Tartrate (Butorphanol 2 Mg/1 Ml Inj) 1 mg IV Q2H PRN PRN Reason: Pain, Moderate(4-6) LABOR PAIN Butorphanol Tartrate (Butorphanol 2 Mg/1 Ml Inj) 2 mg IV Q2H PRN PRN Reason: Pain , Severe (7-10) Citric Acid/Sodium Citrate (Bicitra Oral Liqd 30ml) 30 ml PO ONCE MICA Stop: 03/21/20 21:00 Last Admin: 03/21/20 10:02 Dose: 30 ml Documented by: Diphenhydramine HCl (Diphenhydramine 50 Mg/Ml Vial) 12.5 mg IV Q2H PRN PRN Reason: Itching Diphenoxylate HCl/Atropine (Diphenoxylate/Atropine Tab) 1 tab PO Q6H PRN PRN Reason: Diarrhea Ephedrine Sulfate (Ephedrine Sulfate 50 Mg/1 Ml Inj) 10 mg IV Q2M PRN PRN Reason: Hypotension Famotidine (Famotidine 20 Mg/2 Ml Inj) 20 mg IV ONCE MICA Stop: 03/21/20 21:00 Last Admin: 03/21/20 10:02 Dose: 20 mg Documented by: Fentanyl (Fentanyl 100 Mcg/2 Ml Inj) 100 mcg IV Q2H PRN PRN Reason: Pain,Severe (7-10) LABOR PAIN Hydromorphone HCl (Hydromorphone 1 Mg/1 Ml Inj) 0.5 mg IV Q4H PRN PRN Reason: breakthrough pain > 7/10 Lactated Ringer's (Lactated Ringers) 1,000 mls @ 125 mls/hr IV DIRECT MICA Last Admin: 03/20/20 15:53 Dose: 125 mls/hr Documented by: Oxytocin/Sodium Chloride (Pitocin/Ns 30 Unit/500ml) 30 units in 500 mls @ 40 mls/hr IV TITR MICA; Protocol Ampicillin Sodium (Ampicillin/Ns 1 Gm/50 Ml) 1 gm in 50 mls @ 100 mls/hr IV Q4H MICA; Protocol Last Admin: 03/21/20 07:13 Dose: 100 mls/hr Documented by: Fentanyl/Bupivacaine/Sodium Chlor (Fentanyl-Bupiv 2 Mcg/Ml-0.125%) 200 mcg in 100 mls @ 12 mls/hr EPIDURAL TITR MICA; Protocol Gentamicin Sulfate 140 mg/ (Sodium Chloride) 103.5 mls @ 200 mls/hr IV Q8H MICA Last Admin: 03/21/20 10:45 Dose: 200 mls/hr Documented by: Lactated Ringer's (Lactated Ringers) 1,000 mls @ 2,250 mls/hr IV PREOP MICA Stop: 03/22/20 10:27 Oxytocin/Sodium Chloride (Pitocin/Ns 30 Unit/500ml) 30 units in 500 mls @ 0 mls/hr IV TITR MICA; Protocol Cefazolin Sodium (Ancef/Sterile Water 2 Gm/20 Ml) 2 gm in 20 mls @ 80 mls/hr IV PREOP NR; Protocol Stop: 03/21/20 21:00 Sodium Chloride (Nacl 0.9% 500 Ml) 500 mls @ 0 mls/hr IV ONCE MICA Stop: 03/21/20 18:00 Sodium Chloride (Nacl 0.9% 500 Ml) 500 mls @ 0 mls/hr IV ONCE MICA Stop: 03/21/20 19:00 Sodium Chloride (Nacl 0.9% 500 Ml) 500 mls @ 0 mls/hr IV ONCE MICA Stop: 03/21/20 20:00 Loperamide HCl (Loperamide 2 Mg Cap) 2 mg PO Q2H PRN PRN Reason: Diarrhea Metoclopramide HCl (Metoclopramide 10 Mg/2 Ml Inj) 10 mg IV ONCE MICA Stop: 03/21/20 21:00 Last Admin: 03/21/20 10:02 Dose: 10 mg Documented by: Mineral Oil (Mineral Oil 30 Ml Oral Liqd) 30 ml PO QHS PRN PRN Reason: Constipation Nalbuphine HCl (Nalbuphine 10 Mg/1 Ml Inj) 2.5 mg IV Q2H PRN PRN Reason: Itching Naloxone HCl (Naloxone 2 Mg/2 Ml Inj) 0.2 mg IV Q5M PRN PRN Reason: Respiratory sedation Ondansetron HCl (Ondansetron 4 Mg/2 Ml Inj) 4 mg IV Q8H PRN PRN Reason: Nausea And Vomiting Promethazine HCl (Promethazine 25 Mg Tab) 25 mg PO Q6H PRN PRN Reason: Nausea And Vomiting Promethazine HCl (Promethazine 25 Mg Rect Supp) 25 mg MI Q6H PRN PRN Reason: Nausea And Vomiting Terbutaline Sulfate (Terbutaline 1 Mg/1 Ml Inj) 0.25 mg SUB-Q ONCE PRN PRN Reason: Hyperstimulation/Hypertonicity Physical Examination Vital signs: Vital Signs Pulse Pulse Ox 106 H 98 03/20/20 12:57 03/20/20 12:57 Results - Laboratory Findings CBC and BMP: 03/21/20 11:05 PT/INR, D-dimer PT 13.6 Sec. (12.2-14.9) 03/21/20 11:05 INR 1.05 (0.87-1.13) 03/21/20 11:05 Abnormal lab findings: Abnormal Labs 03/20/20 03/20/20 03/21/20 14:53 14:53 11:05 WBC 15.4 H RBC 3.47 L Hct 30.2 L D MCHC 35 H RDW 15.8 H 16.1 H [place] % (Auto) 7.4 H [place] # (Auto) 1.1 H Seg Neutrophils % 77.7 H Seg Neutrophils # 12.0 H Fibrinogen Crossmatch See Detail 03/21/20 11:05 WBC RBC Hct MCHC RDW [place] % (Auto) [place] # (Auto) Seg Neutrophils % Seg Neutrophils # Fibrinogen 543 H Crossmatch
[2020-03-21] MEDS: LACTATED RINGERS 1,000 ML IV SCH (14:35)
[2020-03-21] MEDS: HYDROmorphone 1 MG/1 ML INJ IV PRN (14:36)
[2020-03-21 15:06] LABS: Hematocrit 24.6 % (30.3-42.9); Hemoglobin 8.5 gm/dl (10.1-14.3); Mean Corpuscular HGB Conc 35 % (30-34); Mean Corpuscular Volume 89 fl (79-97); Platelet Count 143 K/mm3 (140-440); Red Blood Count 2.78 M/mm3 (3.65-5.03); Red Cell Distribution Width 15.2 % (13.2-15.2)
[2020-03-21 15:13] LABS: INR 1.15 (0.87-1.13)
[2020-03-21 15:29] LABS: Alanine Aminotransferase 12 units/L (7-56); Albumin 2.5 g/dL (3.9-5); BUN/Creatinine Ratio 20; Blood Urea Nitrogen 16 mg/dL (7-17); Calcium 7.7 mg/dL (8.4-10.2); Hemolysis Index 5
[2020-03-21] MEDS ORDERED: SODIUM CHLORIDE 0.9% 500 ML 500 ML IV NR ×2 (16:22→16:25)
--- NOTE | 2020-03-21 18:06 | Progress Note ---
Subjective - Subjective Date of service: 03/21/20 Principal diagnosis: DIC, Uterine atony with intraoperative hemorrhage Interval history: pt aaox3 urine output 400ml notified of intraoperative need for lifesaving hysterectomy labs indicative of early DIC/dilutional coagulopathy Plan for transfusion 4 untis PRBC, 2 units FFP and 2 units Platelets. PE: ~200ml blood on peripad, no active bleeding continue ICU management, stable at bedside Objective - Vital Signs Latest vital signs: Vital Signs Temp Pulse Resp BP Pulse Ox 03/21/20 16:46 89 13 100 03/21/20 16:30 101 H 14 111/63 100 03/21/20 16:20 104 H 16 111/63 100 03/21/20 16:10 101 H 16 111/63 100 03/21/20 16:00 102 H 13 111/63 100 03/21/20 15:50 104 H 17 123/68 100 03/21/20 15:40 102 H 14 113/60 100 03/21/20 15:30 102 H 17 113/60 100 03/21/20 15:20 97 H 17 113/60 100 03/21/20 15:10 88 14 113/60 100 03/21/20 15:00 111 H 19 123/68 03/21/20 14:50 97 H 15 123/68 100 03/21/20 14:40 103 H 15 123/68 100 03/21/20 14:36 17 03/21/20 14:30 95 H 19 123/68 100 03/21/20 14:23 97.5 F L 104 H 20 123/68 100 03/21/20 14:20 112 H 21 123/68 100 03/21/20 14:10 123 H 16 95/57 100 03/21/20 14:08 97.6 F 118 H 18 95/57 100 03/21/20 14:00 140 H 14 101/49 100 03/21/20 13:57 97.8 F 125 H 18 95/57 100 03/21/20 13:53 97.8 F 140 H 19 101/49 99 03/21/20 13:50 146 H 20 101/49 100 03/21/20 13:40 150 H 17 101/49 100 03/21/20 13:30 133 H 16 101/49 97 03/21/20 13:22 147 H 18 98 03/21/20 07:42 96 H 133/86 03/21/20 06:15 98.3 F 03/21/20 04:30 98.5 F 03/21/20 04:06 94 H 99 03/21/20 04:01 90 99 03/21/20 03:56 92 H 98 03/21/20 03:51 96 H 97 03/21/20 03:46 91 H 99 03/21/20 03:41 99 H 98 03/21/20 03:36 99 H 99 03/21/20 03:31 94 H 98 03/21/20 03:26 89 99 03/21/20 03:21 90 98 03/21/20 03:16 105 H 99 03/21/20 03:11 85 99 03/21/20 03:06 91 H 99 03/21/20 03:01 93 H 97 03/21/20 02:56 88 97 03/21/20 02:51 102 H 99 03/21/20 02:46 100 H 98 03/21/20 02:41 103 H 98 03/21/20 02:36 105 H 98 03/21/20 02:31 102 H 97 03/21/20 02:30 98.5 F 03/21/20 02:26 97 H 99 03/21/20 02:21 97 H 98 03/21/20 02:16 105 H 99 03/21/20 02:11 106 H 100 03/21/20 02:06 91 H 99 03/21/20 02:01 94 H 99 03/21/20 01:56 97 H 98 03/21/20 01:51 96 H 98 03/21/20 01:46 97 H 98 03/21/20 01:41 91 H 99 03/21/20 01:40 95 H 105/64 03/21/20 01:36 90 99 03/21/20 01:31 95 H 100 03/21/20 01:26 86 100 03/21/20 01:21 95 H 98 03/21/20 01:16 87 99 03/21/20 01:11 92 H 98 03/21/20 01:06 97 H 99 03/21/20 01:04 89 110/64 03/21/20 01:02 90 107/58 03/21/20 01:00 89 107/58 98 03/21/20 00:59 95 H 92 03/21/20 00:58 101 H 106/60 03/21/20 00:56 86 107/57 03/21/20 00:55 94 H 98 03/21/20 00:54 83 106/57 03/21/20 00:52 90 103/56 03/21/20 00:50 92 H 102/72 100 03/21/20 00:48 96 H 103/63 03/21/20 00:46 100 H 103/59 03/21/20 00:45 93 H 99 03/21/20 00:44 91 H 97/53 03/21/20 00:42 93 H 103/56 03/21/20 00:40 94 H 99/54 99 03/21/20 00:38 93 H 100/58 03/21/20 00:36 89 96/52 03/21/20 00:35 90 97 03/21/20 00:34 88 104/58 03/21/20 00:32 90 103/58 03/21/20 00:30 97 H 101/57 90 03/21/20 00:28 92 H 98/57 03/21/20 00:26 83 97/53 03/21/20 00:25 94 H 97 03/21/20 00:24 81 106/56 03/21/20 00:22 84 99/57 03/21/20 00:20 89 103/55 96 03/21/20 00:18 85 106/58 03/21/20 00:16 84 105/54 03/21/20 00:15 90 97 03/21/20 00:14 84 99/52 03/21/20 00:12 90 98/51 03/21/20 00:10 87 104/54 97 03/21/20 00:08 94 H 100/53 03/21/20 00:06 93 H 99/53 03/21/20 00:05 102 H 97 03/21/20 00:04 93 H 101/58 03/21/20 00:02 104 H 101/55 03/21/20 00:00 98.3 F 98 H 105/59 98 03/20/20 23:58 80 110/60 03/20/20 23:56 103 H 98/56 03/20/20 23:55 90 98 03/20/20 23:54 96 H 102/57 03/20/20 23:52 98 H 105/57 03/20/20 23:50 98 H 105/58 98 03/20/20 23:48 100 H 107/57 03/20/20 23:46 105/55 03/20/20 23:45 98 H 97 03/20/20 23:44 90 111/59 03/20/20 23:42 91 H 116/63 03/20/20 23:40 90 115/63 98 03/20/20 23:38 100 H 119/62 03/20/20 23:36 106 H 129/60 03/20/20 23:35 98 H 98 03/20/20 23:34 107 H 116/75 03/20/20 23:32 104 H 123/83 03/20/20 23:30 100 H 121/79 99 03/20/20 23:28 99 H 123/81 03/20/20 23:25 99 H 99 03/20/20 23:20 69 84 03/20/20 23:19 54 L 88 03/20/20 23:15 110 H 99 03/20/20 23:13 93 H 127/81 03/20/20 23:10 99 H 99 03/20/20 23:05 98 H 99 03/20/20 23:00 101 H 98 03/20/20 22:55 104 H 98 03/20/20 22:50 100 H 98 03/20/20 22:45 101 H 99 03/20/20 22:43 97 H 125/83 03/20/20 22:40 106 H 99 03/20/20 22:35 101 H 99 03/20/20 22:30 95 H 98 03/20/20 22:25 103 H 97 03/20/20 22:20 106 H 98 03/20/20 22:15 102 H 97 03/20/20 22:13 115 H 130/87 94 03/20/20 22:10 104 H 98 03/20/20 22:05 91 H 96 03/20/20 22:00 102 H 96 03/20/20 21:55 99 H 97 03/20/20 21:50 102 H 97 03/20/20 21:45 99 H 98 03/20/20 21:44 101 H 136/85 03/20/20 21:40 102 H 97 03/20/20 21:35 109 H 98 03/20/20 21:30 104 H 98 03/20/20 21:25 99 H 98 03/20/20 21:20 120 H 98 03/20/20 21:15 98 H 98 03/20/20 21:12 104 H 133/88 03/20/20 21:10 109 H 98 03/20/20 21:05 103 H 98 03/20/20 21:00 109 H 98 03/20/20 20:59 118 H 93 03/20/20 20:55 105 H 97 03/20/20 20:50 112 H 98 03/20/20 20:45 109 H 98 03/20/20 20:44 104 H 128/88 03/20/20 20:40 102 H 98 03/20/20 20:35 100 H 98 03/20/20 20:30 106 H 96 03/20/20 20:25 107 H 98 03/20/20 20:20 101 H 98 03/20/20 20:15 104 H 98 03/20/20 20:12 94 H 127/85 03/20/20 20:10 97 H 98 03/20/20 20:05 110 H 98 03/20/20 20:00 106 H 97 03/20/20 19:55 101 H 97 03/20/20 19:50 106 H 97 03/20/20 19:45 113 H 96 03/20/20 19:42 105 H 125/81 03/20/20 19:40 108 H 97 03/20/20 19:35 116 H 98 03/20/20 19:30 110 H 97 03/20/20 19:25 113 H 97 03/20/20 19:20 110 H 97 03/20/20 19:15 98.5 F 106 H 97 03/20/20 19:12 110 H 123/82 03/20/20 19:10 119 H 97 03/20/20 19:05 109 H 97 03/20/20 19:00 108 H 128/84 98 03/20/20 18:55 121 H 98 03/20/20 18:50 115 H 97 03/20/20 18:45 115 H 98 03/20/20 18:43 110 H 176/88 03/20/20 18:40 110 H 97 03/20/20 18:35 114 H 97 03/20/20 18:30 113 H 97 03/20/20 18:25 109 H 97 03/20/20 18:20 101 H 97 03/20/20 18:15 113 H 98 03/20/20 18:13 107 H 121/76 03/20/20 18:10 116 H 97 03/20/20 18:05 109 H 97 Intake and Output 03/21/20 03/21/20 03/21/20 07:59 15:59 23:59 Intake Total 100 4184 300 Output Total 300 Balance 100 3884 300 Intake: IV 100 3000 AMPICILLIN/NS 1 GM/50 ML 100 1 gm In 50 ml @ 100 mls/ hr IV Q4H [facility] Rx#: [id number] Oral 300 Blood Product 1184 Fresh Frozen Plasma 357 Thawed Unit [id number] Fresh Frozen Plasma 327 Thawed Unit [id number] Output: Urine 300 Other: Total, Intake Amount 300 - Labs Labs: Abnormal lab results 03/20/20 03/21/20 03/21/20 Range/Units 14:53 11:05 11:05 WBC 15.4 H (4.5-11.0) K/mm3 RBC 3.47 L (3.65-5.03) M/mm3 Hgb (10.1-14.3) gm/dl Hct 30.2 L D (30.3-42.9) % MCHC 35 H (30-34) % RDW 16.1 H (13.2-15.2) % [place] % (Auto) 7.4 H (0.0-7.3) % [place] # (Auto) 1.1 H (0.0-0.8) K/mm3 Seg Neutrophils % 77.7 H (40.0-70.0) % Seg Neutrophils # 12.0 H (1.8-7.7) K/mm3 INR (0.87-1.13) Fibrinogen 543 H (211-480) mg/dl Sodium (137-145) mmol/L Carbon Dioxide (22-30) mmol/L Glucose (65-100) mg/dL Calcium (8.4-10.2) mg/dL Magnesium (1.7-2.3) mg/dL Total Bilirubin (0.1-1.2) mg/dL Total Protein (6.3-8.2) g/dL Albumin (3.9-5) g/dL Crossmatch See Detail 03/21/20 03/21/20 03/21/20 Range/Units 14:46 14:46 14:46 WBC 17.5 H (4.5-11.0) K/mm3 RBC 2.78 L (3.65-5.03) M/mm3 Hgb 8.5 L (10.1-14.3) gm/dl Hct 24.6 L (30.3-42.9) % MCHC 35 H (30-34) % RDW (13.2-15.2) % [place] % (Auto) (0.0-7.3) % [place] # (Auto) (0.0-0.8) K/mm3 Seg Neutrophils % (40.0-70.0) % Seg Neutrophils # (1.8-7.7) K/mm3 INR 1.15 H (0.87-1.13) Fibrinogen (211-480) mg/dl Sodium 135 L (137-145) mmol/L Carbon Dioxide 19 L (22-30) mmol/L Glucose 134 H (65-100) mg/dL Calcium 7.7 L (8.4-10.2) mg/dL Magnesium 1.50 L (1.7-2.3) mg/dL Total Bilirubin 1.80 H (0.1-1.2) mg/dL Total Protein 4.8 L (6.3-8.2) g/dL Albumin 2.5 L (3.9-5) g/dL Crossmatch
[2020-03-22] MEDS: AMPICILLIN/NS 1 GM/50 ML 1 GM/50 ML BAG IV SCH ×6 (00:46→18:28)
[2020-03-22] MEDS: GENTAMICIN 140 MG in SODIUM CHLORIDE 0.9% 100 ML IV SCH ×2 (02:13→10:13)
[2020-03-22] MEDS: LACTATED RINGERS 1,000 ML IV SCH (08:00)
--- NOTE | 2020-03-22 09:20 | Consultation ---
PULMONARY CRITICAL CARE CONSULT NOTE CONSULTING PHYSICIAN: Dr. Sierra in [employer], Dr. Francisco, hospitalist. REASON FOR CONSULTATION: Acute blood loss anemia, suspicion of disseminated intravascular coagulation. CHIEF COMPLAINT AND HISTORY OF PRESENT ILLNESS: The patient is a 20-year-old female 2, para 1, presented to [facility] and was evaluated. She stated she was sent over by her provider at [facility] [employer], [facility]. She had a prior ultrasound done in [place]. She ultimately was scheduled for a section today for what I am told is a 40-week . Postop, there was a suggestion of continued bleeding/diffuse bleeding. According to the [employer] physician, she noticed blood tinged/bloody urine. Estimated blood loss intraoperatively was not excessive, I believe, about 2.5 liters. She had received blood replacement products. She was receiving some cryoprecipitate and fresh frozen plasma had been ordered and out of an abundance of caution, ICU bed was requested and this was offered. When I stopped by to see her, she was resting in bed. She was on supplemental oxygen, I think about 32% FiO2. She mentioned she felt some abnormal contractions in her abdomen, but did not feel like she was in pain. She denied nausea or vomiting. She denies a history of tobacco use or abuse. She denies prior respiratory symptoms. She denies prior bleeding diathesis. She was tachycardic with a pulse in the 40s. Otherwise, her breathing was nonlabored. The Rivas catheter did show some blood-tinged urine, but not a significant amount by the time she was brought upstairs, maybe about 50 mL in the Rivas bag. This really is as much of the history of presentation as I have. PAST MEDICAL HISTORY: None. PAST SURGICAL HISTORY: I believe she may have had a prior CS delivery on her first child, but that is unclear. MEDICATIONS: She was on at the time I stopped by to see her were reviewed, pertinent medications included the following: Ampicillin 1 ____ IV q. 4 hours is ordered, Stadol 1 mg IV q. 12 hours p.r.n. moderate pain and 2 mg IV q. 2 hours p.r.n. severe pain, Ancef 2 grams IV preoperatively, Bicitra 30 mL p.o. one-time scheduled, Benadryl 12.5 mg IV q. 12 hours p.r.n. itching, Lomotil 1 tablet p.o. q.6 hours p.r.n. diarrhea, Ephedrine 10 mg IV q. 2 ____ p.r.n. hypotension, Pepcid 20 mg IV one-time dose, fentanyl 100 mcg IV q. 2 hours p.r.n. severe pain. I believe she was on an epidural also, gentamicin sulfate 140 mg IV q. 8 hours, p.r.n. Dilaudid. Lactated ringers 1000 mL at 125 mL per hour and reportedly she received 2 liters earlier. Reglan, she received a one-time dose 10 mg. She had been on Pitocin drip 30 units in 500 mL at 40 mL an hour and received terbutaline sulphate 0.25 mg subcutaneous once. ALLERGIES: No known drug allergies. DIET: Obese lady, perhaps related weight, acute weight loss or gain history is unknown. FAMILY AND SOCIAL HISTORY: Apparently lived in the community prior to this delivery. Denies alcohol, tobacco, or illicit drug use or abuse. FAMILY HISTORY: Otherwise, noncontributory. REVIEW OF SYSTEMS: No loss of consciousness. No new onset seizures. No new onset focal weakness. No gross hematochezia or melena. She does have some bleeding in her Rivas catheter, perhaps a little less than was described earlier. No new onset focal weakness. Denies seizures. Denies heat or cold intolerance. Denies polydipsia or polyuria. Complete 13-system review of systems obtained. Pertinent positives and/or negatives as in body of history above, otherwise noncontributory. PHYSICAL EXAMINATION: VITAL SIGNS: At presentation and since she has remained afebrile. Her first vital signs show that she had low-grade fever of 99.1 degrees Fahrenheit with a pulse of 106, respiratory rate was not recorded, blood pressure first recorded as 118/77. When I stopped by to see her in the room, her temperature was 97.8 degrees Fahrenheit, pulse of 140, respiratory rate of 19, blood pressure 101/49, O2 sats were 99% and that was on about 3 liters nasal cannula. GENERAL: She is a young female, normocephalic, atraumatic, resting in bed with mildly increased respiratory effort at rest. HEAD, EYES, EARS, NOSE AND THROAT: Anicteric. No conjunctival erythema. Oropharynx was moist. No gross jugular venous distention, no thyromegaly. NECK: Grossly, there were no palpable lymph nodes in the supraclavicular or submandibular lymph node chains. LUNGS: Auscultation of both lung tay unremarkable. Lungs were clear bilaterally. Good bilateral air movement. HEART: Heart sounds 1 and 2 were heard. Regular tachycardia at the time of my evaluation without overt rubs or murmurs. ABDOMEN: Soft, full, bowel sounds are positive but hypoactive. Tender postoperatively. No palpable hepatosplenomegaly. EXTREMITIES: Without overt digital clubbing, no cyanosis, no pedal edema. She had SCDs to both lower extremities. Pedal pulses were 2+ bilaterally. NEUROLOGIC: Pupils are equal, round, about 4 mm, reactive to light. Extraocular muscle movements are intact. She moves all 4 extremities spontaneously. SKIN: Normal turgor without overt cellulitis or rash. She had postoperative incisional changes. Please see the wound care nurse's notes for full description of her skin. PSYCHIATRIC: Mood was normal. Affect was appropriate. LABORATORY DATA: From my review are as follows: Yesterday, white cell count 11,000, hemoglobin 12.9, hematocrit 38.8, platelet count 226, glucose was 76. Today, white cell count is 15,400, hemoglobin 10.6, hematocrit 30.2 and platelet count of 183. INR 1.05. Fibrinogen 543. No microbiology studies. No radiographic studies. ASSESSMENT: 1. Acute blood loss anemia with a hematocrit of about 30.2 at this time. 2. Acute hypoxemic respiratory failure. 3. Systemic inflammatory response syndrome. 4. Leukocytosis. 5. Obesity. PLAN: I doubt we are dealing with disseminated intravascular coagulopathy. I am not impressed by the amount of urine I see all, how bloody it looks. I do think that discretion is the better part of valor and she will be observed in intensive care unit overnight. We will go ahead and order some routine labs, get some chemistries, get some liver function testing. I will repeat another H and H in about 6 hours and do that x 2. I will hold on further transfusion of blood products post-current transfusion. I will get a chest x-ray just to evaluate and make sure there is no aspiration or something that is causing the hypoxemia. Oxygen will be weaned to keep sats greater than or equal to about 90%. Aspiration precautions will be maintained. She will be n.p.o. until cleared by the [employer] physician. Electrolytes will be corrected as necessary. Flu and pneumonia vaccination will be addressed per protocol. Thank you very much for the consult. She will be admitted to the Intensive Care Unit. I will follow along and make further recommendations as picture progresses/becomes clearer. JOB# [id number] EVE/TASHIA MTDD
--- NOTE | 2020-03-22 10:47 | Progress Note ---
Subjective - Subjective Date of service: 03/22/20 Principal diagnosis: DIC, Uterine atony with intraoperative hemorrhage Interval history: pt aaox3 urine output notified of intraoperative need for lifesaving hysterectomy with validation consultant labs indicative of early DIC/dilutional coagulopathy: Repeat labs from today pending Physical exam: No active bleeding, hemodynamically stable Transfer to [facility] Marlena Monaco MD Objective - Vital Signs Latest vital signs: Vital Signs Temp Pulse Pulse Pulse Resp BP Pulse Ox 03/22/20 10:00 101 H 17 103/56 100 03/22/20 09:46 108 H 17 107/57 99 03/22/20 09:30 98 H 14 107/57 98 03/22/20 09:16 102 H 15 111/61 96 03/22/20 09:00 108 H 18 111/61 95 03/22/20 08:46 97 H 15 106/52 95 03/22/20 08:30 96 H 13 106/52 96 03/22/20 08:19 94 H 13 99 03/22/20 08:16 94 H 12 108/61 99 03/22/20 08:00 99.4 F 94 H 13 108/61 99 03/22/20 07:46 95 H 14 105/54 100 03/22/20 07:30 94 H 16 105/54 100 03/22/20 07:16 94 H 12 104/55 100 03/22/20 07:00 94 H 12 104/55 100 03/22/20 06:46 103 H 18 100/53 100 03/22/20 06:30 96 H 17 100/53 100 03/22/20 06:16 99 H 17 104/56 100 03/22/20 06:00 95 H 16 104/56 03/22/20 05:46 98 H 15 99/46 100 03/22/20 05:30 99 H 17 99/46 99 03/22/20 05:16 90 12 97/50 100 03/22/20 05:00 89 12 97/50 100 03/22/20 04:46 102 H 17 96/45 100 03/22/20 04:44 98 F 84 16 97/50 100 03/22/20 04:30 88 13 96/45 100 03/22/20 04:16 90 13 96/42 100 03/22/20 04:14 98.2 F 86 14 96/45 100 03/22/20 04:00 102 H 99 H 17 96/42 100 03/22/20 03:46 91 H 12 101/47 100 03/22/20 03:44 98.1 F 98 H 16 96/42 100 03/22/20 03:30 88 12 101/47 100 03/22/20 03:16 94 H 12 101/46 100 03/22/20 03:14 98 F 89 14 101/47 100 03/22/20 03:00 94 H 12 101/46 100 03/22/20 02:46 95 H 12 102/52 100 03/22/20 02:44 98 F 97 H 14 102/52 100 03/22/20 02:30 104 H 15 102/52 03/22/20 02:15 94 H 14 96/47 100 03/22/20 02:14 98.1 F 96 H 12 102/52 97 03/22/20 02:00 96 H 15 97/47 03/22/20 01:59 98.1 F 96 H 15 97/47 100 03/22/20 01:46 96 H 12 102/52 97 03/22/20 01:30 91 H 12 102/52 99 03/22/20 01:16 94 H 12 99/49 100 03/22/20 01:00 93 H 15 99/49 03/22/20 00:46 104 H 16 92/40 100 03/22/20 00:30 108 H 17 92/40 100 03/22/20 00:16 92 H 14 98/50 100 03/22/20 00:11 98.1 F 104 H 18 97/47 100 03/22/20 00:08 94 H 12 98/50 100 03/22/20 00:00 98.3 F 99 H 99 H 19 98/50 100 03/21/20 23:46 99 H 20 104/49 100 03/21/20 23:30 98.2 F 92 H 13 104/49 100 03/21/20 23:16 101 H 20 102/53 100 03/21/20 23:00 98.3 F 98 H 14 102/53 100 03/21/20 22:46 99 H 13 101/52 100 03/21/20 22:30 98.1 F 94 H 15 101/52 100 03/21/20 22:16 101 H 13 104/52 100 03/21/20 22:00 98 F 92 H 13 104/52 100 03/21/20 21:46 110 H 16 90/55 100 03/21/20 21:30 98.1 F 104 H 17 90/55 100 03/21/20 21:16 106 H 15 109/54 100 03/21/20 21:00 101 H 17 109/54 100 03/21/20 20:46 97.8 F 100 H 16 106/54 100 03/21/20 20:45 91 H 14 106/57 100 03/21/20 20:40 106 H 16 106/58 100 03/21/20 20:31 97.8 F 100 H 19 106/57 100 03/21/20 20:30 102 H 16 106/58 100 03/21/20 20:20 101 H 17 106/58 100 03/21/20 20:10 105 H 18 106/58 100 03/21/20 20:06 96 H 03/21/20 20:00 97.2 F L 107 H 96 H 18 106/58 100 03/21/20 19:50 106 H 18 111/61 100 03/21/20 19:40 105 H 16 111/61 100 03/21/20 19:30 101 H 14 111/61 100 03/21/20 19:20 94 H 13 111/61 100 03/21/20 19:10 105 H 16 111/61 100 03/21/20 19:00 108 H 18 111/61 03/21/20 18:50 92 H 14 114/51 100 03/21/20 18:40 94 H 13 114/51 100 03/21/20 18:30 119 H 24 114/51 100 03/21/20 18:20 116 H 18 114/51 100 03/21/20 18:10 103 H 16 114/51 100 03/21/20 18:00 106 H 16 114/51 100 03/21/20 17:50 103 H 16 111/63 100 03/21/20 17:40 102 H 18 111/63 100 03/21/20 17:30 108 H 17 111/63 100 03/21/20 17:20 104 H 14 111/63 100 03/21/20 17:10 103 H 18 111/63 100 03/21/20 17:00 117 H 19 101/49 100 03/21/20 16:50 93 H 13 100 03/21/20 16:46 89 13 100 03/21/20 16:30 101 H 14 111/63 100 03/21/20 16:20 104 H 16 111/63 100 03/21/20 16:10 101 H 16 111/63 100 03/21/20 16:00 110 H 110 H 110 H 14 111/63 100 03/21/20 15:50 104 H 17 123/68 100 03/21/20 15:40 102 H 14 113/60 100 03/21/20 15:30 102 H 17 113/60 100 03/21/20 15:20 97 H 17 113/60 100 03/21/20 15:10 88 14 113/60 100 03/21/20 15:00 111 H 19 123/68 03/21/20 14:50 97 H 15 123/68 100 03/21/20 14:40 103 H 15 123/68 100 03/21/20 14:36 17 03/21/20 14:33 97.8 F 109 H 17 100/57 03/21/20 14:30 95 H 19 123/68 100 03/21/20 14:23 97.5 F L 104 H 20 123/68 100 03/21/20 14:20 112 H 21 123/68 100 03/21/20 14:10 123 H 16 95/57 100 03/21/20 14:08 97.6 F 118 H 18 95/57 100 03/21/20 14:00 140 H 14 101/49 100 03/21/20 13:57 97.8 F 125 H 18 95/57 100 03/21/20 13:53 97.8 F 140 H 19 101/49 99 03/21/20 13:50 146 H 20 101/49 100 03/21/20 13:40 150 H 17 101/49 100 03/21/20 13:30 133 H 16 101/49 97 03/21/20 13:22 147 H 18 98 Intake and Output 03/21/20 03/22/20 03/22/20 23:59 07:59 15:59 Intake Total 1653.5 150 50 Output Total 1400 2600 600 Balance 253.5 -2450 -550 Intake: IV 1153.5 50 50 AMPICILLIN/NS 1 GM/50 ML 50 50 50 1 gm In 50 ml @ 100 mls/ hr IV Q4H [facility] Rx#: [id number] Gentamicin 140 mg In NaCl 103.5 0.9% 100 ml @ 200 mls/hr IV Q8H MICA Rx#:[id number] Lactated Ringers 1,000 ml 1000 @ 125 mls/hr IV DIRECT MICA Rx#:[id number] Oral 500 0 0 Blood Product 0 100 Leukoreduced Red Blood 0 0 Cells Unit [id number] Leukoreduced Red Blood 100 Cells Unit [id number] Output: Urine 1400 2600 600 Indwelling Catheter 1400 2600 600 Other: Intake, Other Source Leukoreduced Red Blood Saline Solution Cells Unit [id number] Total, Intake Amount 0 0 0 Total, Output Amount 1400 1000 500 Voiding Method Indwelling Catheter Indwelling Catheter Indwelling Catheter - Labs Labs: Abnormal lab results 03/20/20 03/21/20 03/21/20 Range/Units 14:53 11:05 11:05 WBC 15.4 H (4.5-11.0) K/mm3 RBC 3.47 L (3.65-5.03) M/mm3 Hgb (10.1-14.3) gm/dl Hct 30.2 L D (30.3-42.9) % MCHC 35 H (30-34) % RDW 16.1 H (13.2-15.2) % [place] % (Auto) 7.4 H (0.0-7.3) % [place] # (Auto) 1.1 H (0.0-0.8) K/mm3 Seg Neutrophils % 77.7 H (40.0-70.0) % Seg Neutrophils # 12.0 H (1.8-7.7) K/mm3 INR (0.87-1.13) Fibrinogen 543 H (211-480) mg/dl Sodium (137-145) mmol/L Carbon Dioxide (22-30) mmol/L Glucose (65-100) mg/dL Calcium (8.4-10.2) mg/dL Magnesium (1.7-2.3) mg/dL Total Bilirubin (0.1-1.2) mg/dL Total Protein (6.3-8.2) g/dL Albumin (3.9-5) g/dL Crossmatch See Detail 03/21/20 03/21/20 03/21/20 Range/Units 14:46 14:46 14:46 WBC 17.5 H (4.5-11.0) K/mm3 RBC 2.78 L (3.65-5.03) M/mm3 Hgb 8.5 L (10.1-14.3) gm/dl Hct 24.6 L (30.3-42.9) % MCHC 35 H (30-34) % RDW (13.2-15.2) % [place] % (Auto) (0.0-7.3) % [place] # (Auto) (0.0-0.8) K/mm3 Seg Neutrophils % (40.0-70.0) % Seg Neutrophils # (1.8-7.7) K/mm3 INR 1.15 H (0.87-1.13) Fibrinogen (211-480) mg/dl Sodium 135 L (137-145) mmol/L Carbon Dioxide 19 L (22-30) mmol/L Glucose 134 H (65-100) mg/dL Calcium 7.7 L (8.4-10.2) mg/dL Magnesium 1.50 L (1.7-2.3) mg/dL Total Bilirubin 1.80 H (0.1-1.2) mg/dL Total Protein 4.8 L (6.3-8.2) g/dL Albumin 2.5 L (3.9-5) g/dL Crossmatch
[2020-03-22] MEDS: HYDROmorphone 1 MG/1 ML INJ IV PRN ×2 (11:56→16:41)
[2020-03-22] MEDS ORDERED: LANOLIN/ZINC/DIMETHICONE (LANSINOH) 7 GM TP PRN (12:09)
[2020-03-22] MEDS ORDERED: MORPHINE 4 MG/1 ML INJ IV PRN (12:09)
[2020-03-22] MEDS ORDERED: WITCH HAZEL/ GLYCERIN PAD TP PRN (12:09)
[2020-03-22] MEDS ORDERED: MORPHINE 2 MG/1 ML INJ IV PRN (12:09)
[2020-03-22] MEDS ORDERED: IBUPROFEN 600 MG TAB PO PRN (12:09)
[2020-03-22] MEDS ORDERED: NALOXONE 0.4 MG/1 ML INJ IV PRN (12:09)
[2020-03-22] MEDS ORDERED: ONDANSETRON 4 MG/2 ML INJ IV PRN (12:09)
--- NOTE | 2020-03-22 12:24 | Post Anesthesia Evaluation ---
- Post Anesthesia Evaluation Patient Participated: Yes Airway Patent: Yes Stable Respiratory Function: Yes Nausea/Vomiting: No Temp > 96.8F: Yes Pain Manageable: Yes Adequeate Hydration: Yes Anesthesia Complications: No Block Receding Appropriately: Yes Patient on Ventilator: No Other Comments: Labs reviewed and epidural pulled by anesthesia, tip intact.
[2020-03-22 13:41] LABS: Hematocrit 26.8 % (30.3-42.9); Hemoglobin 9.3 gm/dl (10.1-14.3); Mean Corpuscular HGB Conc 35 % (30-34); Mean Corpuscular Volume 87 fl (79-97); Platelet Count 167 K/mm3 (140-440); Red Blood Count 3.07 M/mm3 (3.65-5.03); Red Cell Distribution Width 16.4 % (13.2-15.2)
[2020-03-22 13:42] LABS: Basophils # (Auto) 0.3 K/mm3 (0.0-0.1); Basophils % (Auto) 2.3 % (0.0-1.8); Eosinophils # (Auto) 0.2 K/mm3 (0.0-0.4); Eosinophils % (Auto) 1.6 % (0.0-4.3); Lymphocytes # (Auto) 0.8 K/mm3 (1.2-5.4); Lymphocytes % (Auto) 6.5 % (13.4-35.0); Mean Platelet Volume 9.1 fl (6-12); Monocytes # (Auto) 0.7 K/mm3 (0.0-0.8); Monocytes % (Auto) 6.2 % (0.0-7.3)
--- NOTE | 2020-03-22 14:28 | Progress Note ---
Assessment and Plan Acute blood loss anemia Acute hypoxemic respiratory failure. Systemic inflammatory response syndrome. Leukocytosis. Obesity - prn supplemental oxygen to keep O2 sats > 90% - prn bronchodilators (LÓPEZ) with pulm hygiene per RT - avoid nephrotoxins, renally dose all medications - mobility protocols to prevent pressure ulcers - PT/OT as tolerated - Wound care per RN/WCT - accuchecks with glycemic control per SSI for target blood glucose < 180 mg/dL - GI & VTE prophylaxis - Flu & pneumovax per protocol - continue other care per attending / other consultants - prn analgesia per pain score - OK to transfer out of ICU ... re-evaluate in am & prn Subjective Date of service: 03/22/20 Principal diagnosis: ABLA; Acute hypoxemic respiratory failure; SIRS; Leukocytosis;Uterine Atony Interval history: Patient is seen today for: Acute blood loss anemia; Acute hypoxemic respiratory failure; Systemic inflammatory response syndrome; Leukocytosis; Obesity Seen and examined at bedside; 24hour events reviewed; nursing and respiratory care staff consulted; no adverse overnight events reported to me; resting peacefully in bed; no active bleeding; denies chest pain; No N/V/F/C Objective Vital Signs - 12hr 03/22/20 03/22/20 03/22/20 02:30 02:44 02:46 Temperature 98 F Pulse Rate 104 H 97 H 95 H Pulse Rate [ From Monitor] Respiratory 15 14 12 Rate Blood Pressure 102/52 102/52 102/52 O2 Sat by Pulse 100 100 Oximetry 03/22/20 03/22/20 03/22/20 03:00 03:14 03:16 Temperature 98 F Pulse Rate 94 H 89 94 H Pulse Rate [ From Monitor] Respiratory 12 14 12 Rate Blood Pressure 101/46 101/47 101/46 O2 Sat by Pulse 100 100 100 Oximetry 03/22/20 03/22/20 03/22/20 03:30 03:44 03:46 Temperature 98.1 F Pulse Rate 88 98 H 91 H Pulse Rate [ From Monitor] Respiratory 12 16 12 Rate Blood Pressure 101/47 96/42 101/47 O2 Sat by Pulse 100 100 100 Oximetry 03/22/20 03/22/20 03/22/20 04:00 04:14 04:16 Temperature 98.2 F Pulse Rate 102 H 86 90 Pulse Rate [ 99 H From Monitor] Respiratory 17 14 13 Rate Blood Pressure 96/42 96/45 96/42 O2 Sat by Pulse 100 100 100 Oximetry 03/22/20 03/22/20 03/22/20 04:30 04:44 04:46 Temperature 98 F Pulse Rate 88 84 102 H Pulse Rate [ From Monitor] Respiratory 13 16 17 Rate Blood Pressure 96/45 97/50 96/45 O2 Sat by Pulse 100 100 100 Oximetry 03/22/20 03/22/20 03/22/20 05:00 05:16 05:30 Temperature Pulse Rate 89 90 99 H Pulse Rate [ From Monitor] Respiratory 12 12 17 Rate Blood Pressure 97/50 97/50 99/46 O2 Sat by Pulse 100 100 99 Oximetry 03/22/20 03/22/20 03/22/20 05:46 06:00 06:16 Temperature Pulse Rate 98 H 95 H 99 H Pulse Rate [ From Monitor] Respiratory 15 16 17 Rate Blood Pressure 99/46 104/56 104/56 O2 Sat by Pulse 100 100 Oximetry 03/22/20 03/22/20 03/22/20 06:30 06:46 07:00 Temperature Pulse Rate 96 H 103 H 94 H Pulse Rate [ From Monitor] Respiratory 17 18 12 Rate Blood Pressure 100/53 100/53 104/55 O2 Sat by Pulse 100 100 100 Oximetry 03/22/20 03/22/20 03/22/20 07:16 07:30 07:46 Temperature Pulse Rate 94 H 94 H 95 H Pulse Rate [ From Monitor] Respiratory 12 16 14 Rate Blood Pressure 104/55 105/54 105/54 O2 Sat by Pulse 100 100 100 Oximetry 03/22/20 03/22/20 03/22/20 08:00 08:16 08:19 Temperature 99.4 F Pulse Rate 94 H 94 H Pulse Rate [ 94 H From Monitor] Respiratory 13 12 13 Rate Blood Pressure 108/61 108/61 O2 Sat by Pulse 99 99 99 Oximetry 03/22/20 03/22/20 03/22/20 08:30 08:46 09:00 Temperature Pulse Rate 96 H 97 H 108 H Pulse Rate [ From Monitor] Respiratory 13 15 18 Rate Blood Pressure 106/52 106/52 111/61 O2 Sat by Pulse 96 95 95 Oximetry 03/22/20 03/22/20 03/22/20 09:16 09:30 09:46 Temperature Pulse Rate 102 H 98 H 108 H Pulse Rate [ From Monitor] Respiratory 15 14 17 Rate Blood Pressure 111/61 107/57 107/57 O2 Sat by Pulse 96 98 99 Oximetry 03/22/20 03/22/20 03/22/20 10:00 10:16 10:30 Temperature Pulse Rate 101 H 101 H 105 H Pulse Rate [ From Monitor] Respiratory 17 18 18 Rate Blood Pressure 103/56 103/56 103/56 O2 Sat by Pulse 100 99 100 Oximetry 03/22/20 03/22/20 03/22/20 10:45 11:00 11:15 Temperature Pulse Rate 109 H 105 H 105 H Pulse Rate [ From Monitor] Respiratory 15 17 13 Rate Blood Pressure 107/81 116/61 116/61 O2 Sat by Pulse 99 100 Oximetry 03/22/20 03/22/20 03/22/20 11:30 11:45 12:00 Temperature Pulse Rate 109 H 124 H 100 H Pulse Rate [ From Monitor] Respiratory 18 24 20 Rate Blood Pressure 112/60 112/60 98/55 O2 Sat by Pulse 100 100 100 Oximetry 03/22/20 03/22/20 03/22/20 12:15 12:31 12:45 Temperature Pulse Rate 119 H 119 H 109 H Pulse Rate [ From Monitor] Respiratory 16 20 16 Rate Blood Pressure 98/55 106/67 106/67 O2 Sat by Pulse 100 100 100 Oximetry 03/22/20 03/22/20 03/22/20 13:00 13:15 13:30 Temperature Pulse Rate 108 H 109 H 109 H Pulse Rate [ From Monitor] Respiratory 18 18 18 Rate Blood Pressure 113/65 113/65 116/74 O2 Sat by Pulse 100 100 Oximetry 03/22/20 03/22/20 13:45 14:00 Temperature Pulse Rate 113 H 109 H Pulse Rate [ From Monitor] Respiratory 20 15 Rate Blood Pressure 116/74 109/67 O2 Sat by Pulse 100 100 Oximetry Constitutional: no acute distress, other (young femaled with normal respiratory effort at rest) Eyes: non-icteric ENT: oropharynx moist Neck: supple, no lymphadenopathy, no JVD Effort: normal Ascultation: Bilateral: clear Percussion: Bilateral: not dull Cardiovascular: regular rate and rhythm Gastrointestinal: normoactive bowel sounds, soft, non-distended (protuberant p ost-op) Integumentary: normal Extremities: no cyanosis, no edema, pink and warm, pulses normal Neurologic: normal mental status, non-focal exam, pupils equal and round, motor strength normal and Psychiatric: mood appropriate, affect normal CBC and BMP: 03/23/20 00:13 03/21/20 14:46 ABG, PT/INR, D-dimer: PT/INR, D-dimer INR 1.15 (0.87-1.13) H 03/21/20 14:46 Abnormal lab findings: Abnormal Labs 03/20/20 03/20/20 03/21/20 14:53 14:53 11:05 WBC 15.4 H RBC 3.47 L Hgb Hct 30.2 L D MCHC 35 H RDW 15.8 H 16.1 H Lymph % (Auto) [place] % (Auto) 7.4 H Baso % (Auto) Lymph # (Auto) [place] # (Auto) 1.1 H Baso # (Auto) Seg Neutrophils % 77.7 H Seg Neutrophils # 12.0 H INR Fibrinogen Sodium Carbon Dioxide Glucose POC Glucose Calcium Magnesium Total Bilirubin Total Protein Albumin Crossmatch See Detail 03/21/20 03/21/20 03/21/20 11:05 14:46 14:46 WBC 17.5 H RBC 2.78 L Hgb 8.5 L Hct 24.6 L MCHC 35 H RDW Lymph % (Auto) [place] % (Auto) Baso % (Auto) Lymph # (Auto) [place] # (Auto) Baso # (Auto) Seg Neutrophils % Seg Neutrophils # INR 1.15 H Fibrinogen 543 H Sodium Carbon Dioxide Glucose POC Glucose Calcium Magnesium Total Bilirubin Total Protein Albumin Crossmatch 03/21/20 03/22/20 03/22/20 14:46 12:16 12:58 WBC 12.0 H RBC 3.07 L Hgb 9.3 L Hct 26.8 L MCHC 35 H RDW 16.4 H Lymph % (Auto) 6.5 L [place] % (Auto) Baso % (Auto) 2.3 H Lymph # (Auto) 0.8 L [place] # (Auto) Baso # (Auto) 0.3 H Seg Neutrophils % 83.4 H Seg Neutrophils # 10.0 H INR Fibrinogen Sodium 135 L Carbon Dioxide 19 L Glucose 134 H POC Glucose 63 L Calcium 7.7 L Magnesium 1.50 L Total Bilirubin 1.80 H Total Protein 4.8 L Albumin 2.5 L Crossmatch 03/22/20 12:58 WBC RBC Hgb Hct MCHC RDW Lymph % (Auto) [place] % (Auto) Baso % (Auto) Lymph # (Auto) [place] # (Auto) Baso # (Auto) Seg Neutrophils % Seg Neutrophils # INR Fibrinogen 582 H Sodium Carbon Dioxide Glucose POC Glucose Calcium Magnesium Total Bilirubin Total Protein Albumin Crossmatch Allied health notes reviewed: nursing
--- NOTE | 2020-03-22 16:51 | Progress Note ---
Assessment and Plan Acute blood loss anemia status post transfusion Systemic inflammatory response syndrome. Leukocytosis. Obesity Status post -Transfer to [facility] [facility] unit today -Continue to monitor H&H which is currently stable -Patient is tolerating diet, vital stable -Ambulate as tolerated -DC planning per primary care Subjective Date of service: 03/22/20 Principal diagnosis: ABLA; Acute hypoxemic respiratory failure; SIRS; Leukocytosis;Uterine Atony Interval history: Patient seen and examined. Medical records and medication list reviewed. No acute event overnight noted by the RN. Patient denies any chest pain or difficulty breathing. Patient is tolerating diet. Discussed plan of care at bedside with patient. Objective - Exam Narrative Exam: GENERAL: well-developed and well-nourished female lying on bed appeared to be in no discomfort. HEENT: Normocephalic. Atraumatic. No conjunctival congestion or icterus. Patient has moist mucous membranes. NECK: Supple. Trachea midline. CHEST/LUNGS: Clear to auscultated bilaterally, breathing nonlabored. No wheezes crackles or rhonchi. HEART/CARDIOVASCULAR: Regular in rate and rhythm. S1 and S2 positive. ABDOMEN: Abdomen is soft, nontender. Patient has normal bowel sounds. SKIN: There is no rash. Warm and dry. NEURO: No focal motor deficit. Follows command. MUSCULOSKELETAL: No joint effusion or tenderness. EXTRIMITY: No edema, no cyanosis or clubbing. PSYCH: Cooperative. - Constitutional Vitals: Vital Signs - 12hr 03/22/20 03/22/20 03/22/20 05:00 05:16 05:30 Temperature Pulse Rate 89 90 99 H Pulse Rate [ From Monitor] Respiratory 12 12 17 Rate Blood Pressure 97/50 97/50 99/46 O2 Sat by Pulse 100 100 99 Oximetry 03/22/20 03/22/20 03/22/20 05:46 06:00 06:16 Temperature Pulse Rate 98 H 95 H 99 H Pulse Rate [ From Monitor] Respiratory 15 16 17 Rate Blood Pressure 99/46 104/56 104/56 O2 Sat by Pulse 100 100 Oximetry 03/22/20 03/22/20 03/22/20 06:30 06:46 07:00 Temperature Pulse Rate 96 H 103 H 94 H Pulse Rate [ From Monitor] Respiratory 17 18 12 Rate Blood Pressure 100/53 100/53 104/55 O2 Sat by Pulse 100 100 100 Oximetry 03/22/20 03/22/20 03/22/20 07:16 07:30 07:46 Temperature Pulse Rate 94 H 94 H 95 H Pulse Rate [ From Monitor] Respiratory 12 16 14 Rate Blood Pressure 104/55 105/54 105/54 O2 Sat by Pulse 100 100 100 Oximetry 03/22/20 03/22/20 03/22/20 08:00 08:16 08:19 Temperature 99.4 F Pulse Rate 94 H 94 H Pulse Rate [ 94 H From Monitor] Respiratory 13 12 13 Rate Blood Pressure 108/61 108/61 O2 Sat by Pulse 99 99 99 Oximetry 03/22/20 03/22/20 03/22/20 08:30 08:46 09:00 Temperature Pulse Rate 96 H 97 H 108 H Pulse Rate [ From Monitor] Respiratory 13 15 18 Rate Blood Pressure 106/52 106/52 111/61 O2 Sat by Pulse 96 95 95 Oximetry 03/22/20 03/22/20 03/22/20 09:16 09:30 09:46 Temperature Pulse Rate 102 H 98 H 108 H Pulse Rate [ From Monitor] Respiratory 15 14 17 Rate Blood Pressure 111/61 107/57 107/57 O2 Sat by Pulse 96 98 99 Oximetry 03/22/20 03/22/20 03/22/20 10:00 10:16 10:30 Temperature Pulse Rate 101 H 101 H 105 H Pulse Rate [ From Monitor] Respiratory 17 18 18 Rate Blood Pressure 103/56 103/56 103/56 O2 Sat by Pulse 100 99 100 Oximetry 03/22/20 03/22/20 03/22/20 10:45 11:00 11:15 Temperature Pulse Rate 109 H 105 H 105 H Pulse Rate [ From Monitor] Respiratory 15 17 13 Rate Blood Pressure 107/81 116/61 116/61 O2 Sat by Pulse 99 100 Oximetry 03/22/20 03/22/20 03/22/20 11:30 11:45 12:00 Temperature Pulse Rate 109 H 124 H 100 H Pulse Rate [ From Monitor] Respiratory 18 24 20 Rate Blood Pressure 112/60 112/60 98/55 O2 Sat by Pulse 100 100 100 Oximetry 03/22/20 03/22/20 03/22/20 12:15 12:31 12:45 Temperature Pulse Rate 119 H 119 H 109 H Pulse Rate [ From Monitor] Respiratory 16 20 16 Rate Blood Pressure 98/55 106/67 106/67 O2 Sat by Pulse 100 100 100 Oximetry 03/22/20 03/22/20 03/22/20 13:00 13:15 13:30 Temperature Pulse Rate 108 H 109 H 109 H Pulse Rate [ From Monitor] Respiratory 18 18 18 Rate Blood Pressure 113/65 113/65 116/74 O2 Sat by Pulse 100 100 Oximetry 03/22/20 03/22/20 13:45 14:00 Temperature Pulse Rate 113 H 109 H Pulse Rate [ From Monitor] Respiratory 20 15 Rate Blood Pressure 116/74 109/67 O2 Sat by Pulse 100 100 Oximetry - Labs CBC & Chem 7: 03/23/20 00:13 03/21/20 14:46 Labs: Abnormal lab results 03/20/20 03/22/20 03/22/20 Range/Units 14:53 12:16 12:58 WBC 12.0 H (4.5-11.0) K/mm3 RBC 3.07 L (3.65-5.03) M/mm3 Hgb 9.3 L (10.1-14.3) gm/dl Hct 26.8 L (30.3-42.9) % MCHC 35 H (30-34) % RDW 16.4 H (13.2-15.2) % Lymph % (Auto) 6.5 L (13.4-35.0) % Baso % (Auto) 2.3 H (0.0-1.8) % Lymph # (Auto) 0.8 L (1.2-5.4) K/mm3 Baso # (Auto) 0.3 H (0.0-0.1) K/mm3 Seg Neutrophils % 83.4 H (40.0-70.0) % Seg Neutrophils # 10.0 H (1.8-7.7) K/mm3 Fibrinogen (211-480) mg/dl POC Glucose 63 L (70-105) mg/dL Crossmatch See Detail 03/22/20 Range/Units 12:58 WBC (4.5-11.0) K/mm3 RBC (3.65-5.03) M/mm3 Hgb (10.1-14.3) gm/dl Hct (30.3-42.9) % MCHC (30-34) % RDW (13.2-15.2) % Lymph % (Auto) (13.4-35.0) % Baso % (Auto) (0.0-1.8) % Lymph # (Auto) (1.2-5.4) K/mm3 Baso # (Auto) (0.0-0.1) K/mm3 Seg Neutrophils % (40.0-70.0) % Seg Neutrophils # (1.8-7.7) K/mm3 Fibrinogen 582 H (211-480) mg/dl POC Glucose (70-105) mg/dL Crossmatch
[2020-03-22] MEDS ORDERED: D5W/0.9% NACL 1,000 ML IV SCH (17:00)
[2020-03-22] MEDS: HYDROcodone/ACETAMINOPHEN 5-325 MG TAB PO PRN (21:32)
[2020-03-22] MEDS ORDERED: GENTAMICIN 350 MG in SODIUM CHLORIDE 0.9% 100 ML IV SCH (22:00)
[2020-03-23 00:37] LABS: Hemoglobin 8.9 gm/dl (10.1-14.3)
[2020-03-23] MEDS: HYDROcodone/ACETAMINOPHEN 5-325 MG TAB PO PRN (08:45)
--- NOTE | 2020-03-23 11:53 | Progress Note ---
Subjective - Subjective Principal diagnosis: DIC,uterine atony: SP lifesaving hysterectomy with RSO Interval history: POD#2 pt aaox3 urine output adequate Patient is ambulatory and tolerating p.o. Pain is controlled with p.o. pain Positive flatus Physical exam: Incision clean dry and intact with a benign abdomen Plan for the day: Encourage ambulation, advance diet, continue p.o. pain meds as needed Encourage patient to [place] with baby Marlena Monaco MD Patient reports: appetite normal, voiding normally, pain well controlled, ambulating normally [place]: doing well Objective - Vital Signs Latest vital signs: Vital Signs Temp Pulse Pulse Resp BP BP Pulse Ox 03/23/20 08:06 98.8 F 113 H 16 127/78 96 03/23/20 04:53 98.6 F 106 H 18 119/79 96 03/23/20 00:25 98.9 F 118 H 18 114/68 93 03/22/20 22:30 99.9 F H 03/22/20 21:32 18 03/22/20 20:49 100.6 F H 122 H 18 105/70 98 03/22/20 18:52 99.4 F 121 H 20 122/69 96 03/22/20 17:00 117 H 19 113/63 100 03/22/20 16:45 117 H 19 107/58 99 03/22/20 16:30 113 H 19 107/58 100 03/22/20 16:15 113 H 21 109/66 100 03/22/20 16:00 113 H 115 H 20 109/66 100 03/22/20 15:45 114 H 26 H 107/61 100 03/22/20 15:31 124 H 20 107/61 100 03/22/20 15:15 105 H 15 113/65 100 03/22/20 15:00 113 H 21 113/65 100 03/22/20 14:45 107 H 14 120/71 99 03/22/20 14:30 107 H 14 120/71 100 03/22/20 14:15 117 H 21 109/67 99 03/22/20 14:00 109 H 15 109/67 100 03/22/20 13:45 113 H 20 116/74 100 03/22/20 13:30 109 H 18 116/74 100 03/22/20 13:15 109 H 18 113/65 100 03/22/20 13:00 108 H 18 113/65 03/22/20 12:45 109 H 16 106/67 100 03/22/20 12:31 119 H 20 106/67 100 03/22/20 12:15 119 H 16 98/55 100 03/22/20 12:00 97.4 F L 114 H 114 H 23 98/55 99 Intake and Output 03/22/20 03/23/20 03/23/20 23:59 07:59 15:59 Intake Total 340 200 120 Output Total 2400 1400 Balance -2059 -1199 120 Intake: Oral 340 200 120 Output: Urine 2400 1400 Indwelling Catheter 1100 500 Uretheral ([place]) 1300 900 Other: Total, Intake Amount 100 200 120 Total, Output Amount 400 500 Voiding Method Indwelling Catheter # Voids Void 1 - Exam Breasts: Present: deferred Cardiovascular: Present: Regular rate Lungs: Present: Clear to auscultation Abdomen: Present: normal appearance, soft, normal bowel sounds Deep Tendon Reflex Grade: Normal but brisk +3 Incision: Present: normal, dry, intact - Labs Labs: Abnormal lab results 03/22/20 03/22/20 03/22/20 Range/Units 12:16 12:58 12:58 WBC 12.0 H (4.5-11.0) K/mm3 RBC 3.07 L (3.65-5.03) M/mm3 Hgb 9.3 L (10.1-14.3) gm/dl Hct 26.8 L (30.3-42.9) % MCHC 35 H (30-34) % RDW 16.4 H (13.2-15.2) % Lymph % (Auto) 6.5 L (13.4-35.0) % Baso % (Auto) 2.3 H (0.0-1.8) % Lymph # (Auto) 0.8 L (1.2-5.4) K/mm3 Baso # (Auto) 0.3 H (0.0-0.1) K/mm3 Seg Neutrophils % 83.4 H (40.0-70.0) % Seg Neutrophils # 10.0 H (1.8-7.7) K/mm3 Fibrinogen 582 H (211-480) mg/dl POC Glucose 63 L (70-105) mg/dL 03/22/20 03/23/20 Range/Units 17:11 00:13 WBC (4.5-11.0) K/mm3 RBC (3.65-5.03) M/mm3 Hgb 8.9 L (10.1-14.3) gm/dl Hct 26.0 L (30.3-42.9) % MCHC (30-34) % RDW (13.2-15.2) % Lymph % (Auto) (13.4-35.0) % Baso % (Auto) (0.0-1.8) % Lymph # (Auto) (1.2-5.4) K/mm3 Baso # (Auto) (0.0-0.1) K/mm3 Seg Neutrophils % (40.0-70.0) % Seg Neutrophils # (1.8-7.7) K/mm3 Fibrinogen (211-480) mg/dl POC Glucose 66 L (70-105) mg/dL
[2020-03-23] MEDS ORDERED: MAGNESIUM HYDROXIDE (MOM) ORAL LIQD UDC PO PRN (17:01)
[2020-03-23 19:34] LABS: Hematocrit 26.5 % (30.3-42.9); Hemoglobin 8.8 gm/dl (10.1-14.3); Mean Corpuscular HGB Conc 33 % (30-34); Mean Corpuscular Volume 89 fl (79-97); Platelet Count 213 K/mm3 (140-440); Red Blood Count 2.98 M/mm3 (3.65-5.03); Red Cell Distribution Width 16.2 % (13.2-15.2)
[2020-03-23 19:45] LABS: Alanine Aminotransferase 12 units/L (7-56); Albumin 2.9 g/dL (3.9-5); Blood Urea Nitrogen 12 mg/dL (7-17); Calcium 8.3 mg/dL (8.4-10.2); Hemolysis Index 0
[2020-03-23 19:55] LABS: BUN/Creatinine Ratio 24
--- NOTE | 2020-03-23 21:52 | Progress Note ---
Assessment and Plan Acute blood loss anemia status post transfusion Systemic inflammatory response syndrome. Leukocytosis without any infectious cause. Obesity Status post -Continue to monitor H&H which is currently stable -Patient is tolerating diet, vital stable -Ambulate as tolerated -DC planning per primary care Subjective Date of service: 03/23/20 Principal diagnosis: ABLA; Acute hypoxemic respiratory failure; SIRS; Leukocytosis;Uterine Atony Interval history: Patient seen and examined. Medical records and medication list reviewed. No acute event overnight noted by the RN. Patient denies any chest pain or difficulty breathing. Patient is tolerating diet. Discussed plan of care at bedside with patient. Objective - Exam Narrative Exam: GENERAL: well-developed and well-nourished female lying on bed appeared to be in no discomfort. HEENT: Normocephalic. Atraumatic. No conjunctival congestion or icterus. Patient has moist mucous membranes. NECK: Supple. Trachea midline. CHEST/LUNGS: Clear to auscultated bilaterally, breathing nonlabored. No wheezes crackles or rhonchi. HEART/CARDIOVASCULAR: Regular in rate and rhythm. S1 and S2 positive. ABDOMEN: Abdomen is soft, nontender. Patient has normal bowel sounds. SKIN: There is no rash. Warm and dry. NEURO: No focal motor deficit. Follows command. MUSCULOSKELETAL: No joint effusion or tenderness. EXTRIMITY: No edema, no cyanosis or clubbing. PSYCH: Cooperative. - Constitutional Vitals: Vital Signs - 12hr 03/23/20 03/23/20 14:56 21:05 Temperature 98.0 F 98.0 F Pulse Rate 113 H 113 H Respiratory 20 18 Rate Blood Pressure 115/67 109/73 O2 Sat by Pulse 98 99 Oximetry - Labs CBC & Chem 7: 03/23/20 19:09 03/23/20 19:09 Labs: Abnormal lab results 03/23/20 03/23/20 03/23/20 Range/Units 00:13 19:09 19:09 WBC 12.6 H (4.5-11.0) K/mm3 RBC 2.98 L (3.65-5.03) M/mm3 Hgb 8.9 L 8.8 L (10.1-14.3) gm/dl Hct 26.0 L 26.5 L (30.3-42.9) % RDW 16.2 H (13.2-15.2) % Creatinine 0.5 L (0.6-1.2) mg/dL Calcium 8.3 L (8.4-10.2) mg/dL Total Protein 5.2 L (6.3-8.2) g/dL Albumin 2.9 L (3.9-5) g/dL
--- NOTE | 2020-03-24 10:01 | Progress Note ---
Assessment and Plan - Patient Problems (1) DIC (disseminated intravascular coagulation) Current Visit: Yes Status: Acute Plan to address problem: --Resolving, Hgb stable. POD3 s/p emergent c-hyst for concerns for DIC --Ok to discharge home --Needs outpatient follow up for staple removal and routine postoperative care Subjective - Subjective Date of service: 03/24/20 Principal diagnosis: ABLA; Acute hypoxemic respiratory failure; SIRS; Leukocytosis;Uterine Atony Interval history: Patient doing well in postoperative period. Pain well controlled. Passing flatus. Urinating spontaneously. Tolerating po. Baby doing well in the room. Wants to breastfeed when able, but she is concerned about the narcotic use for her surgery. Patient reports: appetite normal, voiding normally, pain well controlled, flatus, ambulating normally [place]: doing well Objective - Vital Signs Latest vital signs: Vital Signs Temp Pulse Resp BP BP Pulse Ox 03/24/20 07:37 98.3 F 91 H 20 106/63 03/24/20 01:19 98.8 F 78 16 119/75 03/23/20 21:05 98.0 F 113 H 18 109/73 99 03/23/20 14:56 98.0 F 113 H 20 115/67 98 Intake and Output 03/23/20 03/24/20 03/24/20 23:59 07:59 15:59 Intake Total 540 150 Output Total 1 Balance 539 150 Intake: Oral 240 120 Intake, Free Water 300 30 Output: Urine 1 Void 1 Other: Total, Intake Amount 240 120 Total, Output Amount 1 # Voids Void 1 1 - Exam Cardiovascular: Present: Regular rate Lungs: Present: Clear to auscultation, Normal air movement Abdomen: Present: normal appearance, normal bowel sounds Incision: Present: normal - Labs Labs: Abnormal lab results 03/23/20 03/23/20 Range/Units 19:09 19:09 WBC 12.6 H (4.5-11.0) K/mm3 RBC 2.98 L (3.65-5.03) M/mm3 Hgb 8.8 L (10.1-14.3) gm/dl Hct 26.5 L (30.3-42.9) % RDW 16.2 H (13.2-15.2) % Creatinine 0.5 L (0.6-1.2) mg/dL Calcium 8.3 L (8.4-10.2) mg/dL Total Protein 5.2 L (6.3-8.2) g/dL Albumin 2.9 L (3.9-5) g/dL
--- NOTE | 2020-03-24 10:03 | Discharge Summary ---
Providers - Providers Date of Admission: 03/20/20 12:16 Date of discharge: 03/24/20 Attending physician: LUIS ESPINAL JR, MD 03/20/20 17:02 Consult to Physician [CONS] Urgent Comment: Consulting Provider: BARBIE FITCH Physician Instructions: Reason For Exam: Trisomy 13 for IOL 03/21/20 14:13 Consult to Physician [CONS] Urgent Comment: DR. KOWALSKI PATIENT/ JESSE Consulting Provider: BERTO LIAO Physician Instructions: Reason For Exam: Critical care Primary care physician: LUIS ESPINAL JR, MD Hospitalization Reason for admission: induction of labor Delivery: Procedure: section, primary low transverse, other (with emergent ceserean hystectomy for uterine atony and concern for DIC) Incision: normal complications: uterine atony (with subsequent c-hyst for lifesaving measures) Discharge diagnosis: IUP at term delivered Hospital course: 20 y/o female presented to [facility] L&D for an IOL at 38w r/t GDM, LGA, polyhydramnios, MO, and NIPT pos for trisomy 13. Patient underwent at primary for arrest of descent, other (chorioamnionitis, GDM, LGA, polyhydramnios, MO, and NIPT pos for trisomy 13). 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 Patient was admitted to hospitalist/ICU team with concern for DIC and patient improved, meeting postoperative/ goals. Patient was discharged home 03/24/2020, POD3 in good condition. Condition at discharge: Fair Disposition: DC-01 TO HOME OR SELFCARE - Discharge Diagnoses (1) DIC (disseminated intravascular coagulation) Status: Acute Plan - Discharge Medications Prescriptions: Ibuprofen [Motrin Ib] 400 mg PO Q4HR #90 capsule Oxycodone HCl/Acetaminophen [Oxycodon-Acetaminophen 2.5-325] 1 each PO Q4HR #20 tablet - Provider Discharge Summary Activity: no heavy lifting 4 weeks, no strenuous exercise Diet: routine Instructions: routine Additional instructions: [] Smoking cessation referral if applicable(refer to patient education folder for contact #) [] Refer to [facility] Booklet Call your doctor immediately for: * Fever > 100.5 * Heavy vaginal bleeding ( >1 pad per hour) * Severe persistent headache * Shortness of breath * Reddened, hot, painful area to leg or breast * Drainage or odor from incision. * Keep incision clean and dry at all times and follow doctor's instructions regarding bathing/showering - Follow up plan Follow up: HUMBERTO MOTLEY MD [Staff Physician] - 10 Days
--- NOTE | 2020-03-24 11:43 | Progress Note ---
Assessment and Plan Acute blood loss anemia status post transfusion Systemic inflammatory response syndrome. Leukocytosis without any infectious cause. Obesity Status post -Continue to monitor H&H which is currently stable -Patient is tolerating diet, vital stable -Ambulate as tolerated -Plan for discharge today -Recommend repeat CBC PT/INR and CMP in 1 week as outpatient Subjective Date of service: 03/24/20 Principal diagnosis: ABLA; Acute hypoxemic respiratory failure; SIRS; Leukocytosis;Uterine Atony Interval history: Patient seen and examined. Medical records and medication list reviewed. No acute event overnight noted by the RN. Patient denies any chest pain or difficulty breathing. Patient is tolerating diet. Discussed plan of care at bedside with patient. Objective - Exam Narrative Exam: GENERAL: well-developed and well-nourished female lying on bed appeared to be in no discomfort. HEENT: Normocephalic. Atraumatic. No conjunctival congestion or icterus. Patient has moist mucous membranes. NECK: Supple. Trachea midline. CHEST/LUNGS: Clear to auscultated bilaterally, breathing nonlabored. No wheezes crackles or rhonchi. HEART/CARDIOVASCULAR: Regular in rate and rhythm. S1 and S2 positive. ABDOMEN: Abdomen is soft, nontender. Patient has normal bowel sounds. SKIN: There is no rash. Warm and dry. NEURO: No focal motor deficit. Follows command. MUSCULOSKELETAL: No joint effusion or tenderness. EXTRIMITY: No edema, no cyanosis or clubbing. PSYCH: Cooperative. - Constitutional Vitals: Vital Signs - 12hr 03/24/20 03/24/20 01:19 07:37 Temperature 98.8 F 98.3 F Pulse Rate 78 91 H Respiratory 16 20 Rate Blood Pressure 119/75 106/63 [Left] - Labs CBC & Chem 7: 03/23/20 19:09 03/23/20 19:09 Labs: Abnormal lab results 03/23/20 03/23/20 Range/Units 19:09 19:09 WBC 12.6 H (4.5-11.0) K/mm3 RBC 2.98 L (3.65-5.03) M/mm3 Hgb 8.8 L (10.1-14.3) gm/dl Hct 26.5 L (30.3-42.9) % RDW 16.2 H (13.2-15.2) % Creatinine 0.5 L (0.6-1.2) mg/dL Calcium 8.3 L (8.4-10.2) mg/dL Total Protein 5.2 L (6.3-8.2) g/dL Albumin 2.9 L (3.9-5) g/dL
[2020-03-24 13:50] VITALS: BP 122/77
--- NOTE | 2020-03-24 15:05 | Progress Note ---
Assessment and Plan - Patient Problems (1) DIC (disseminated intravascular coagulation) Current Visit: Yes Status: Acute Subjective Date of service: 03/24/20 Principal diagnosis: ABLA; Acute hypoxemic respiratory failure; SIRS; Leukocytosis;Uterine Atony Objective Vital Signs - 12hr 03/24/20 03/24/20 03/24/20 07:37 13:49 13:51 Temperature 98.3 F 99 F 99 F Pulse Rate 91 H 100 H 100 H Respiratory 20 20 20 Rate Blood Pressure 106/63 122/77 122/77 [Left] Constitutional: no acute distress, other (young femaled with normal respiratory effort at rest) Eyes: non-icteric ENT: oropharynx moist Neck: supple, no lymphadenopathy, no JVD Effort: normal Ascultation: Bilateral: clear Percussion: Bilateral: not dull Cardiovascular: regular rate and rhythm Gastrointestinal: normoactive bowel sounds, soft, non-distended (protuberant post-op) Integumentary: normal Extremities: no cyanosis, no edema, pink and warm, pulses normal Neurologic: normal mental status, non-focal exam, pupils equal and round, motor strength normal and Psychiatric: mood appropriate, affect normal CBC and BMP: 03/23/20 19:09 03/23/20 19:09 ABG, PT/INR, D-dimer: PT/INR, D-dimer PT Cancelled 03/22/20 12:58 INR 1.15 (0.87-1.13) H 03/21/20 14:46 Abnormal lab findings: Abnormal Labs 03/20/20 03/20/20 03/21/20 14:53 14:53 11:05 WBC 15.4 H RBC 3.47 L Hgb Hct 30.2 L D MCHC 35 H RDW 15.8 H 16.1 H Lymph % (Auto) Graham % (Auto) 7.4 H Baso % (Auto) Lymph # (Auto) Graham # (Auto) 1.1 H Baso # (Auto) Seg Neutrophils % 77.7 H Seg Neutrophils # 12.0 H INR Fibrinogen Sodium Carbon Dioxide Creatinine Glucose POC Glucose Calcium Magnesium Total Bilirubin Total Protein Albumin Crossmatch See Detail 03/21/20 03/21/20 03/21/20 11:05 14:46 14:46 WBC 17.5 H RBC 2.78 L Hgb 8.5 L Hct 24.6 L MCHC 35 H RDW Lymph % (Auto) Graham % (Auto) Baso % (Auto) Lymph # (Auto) Graham # (Auto) Baso # (Auto) Seg Neutrophils % Seg Neutrophils # INR 1.15 H Fibrinogen 543 H Sodium Carbon Dioxide Creatinine Glucose POC Glucose Calcium Magnesium Total Bilirubin Total Protein Albumin Crossmatch 03/21/20 03/22/20 03/22/20 14:46 12:16 12:58 WBC 12.0 H RBC 3.07 L Hgb 9.3 L Hct 26.8 L MCHC 35 H RDW 16.4 H Lymph % (Auto) 6.5 L Graham % (Auto) Baso % (Auto) 2.3 H Lymph # (Auto) 0.8 L Graham # (Auto) Baso # (Auto) 0.3 H Seg Neutrophils % 83.4 H Seg Neutrophils # 10.0 H INR Fibrinogen Sodium 135 L Carbon Dioxide 19 L Creatinine Glucose 134 H POC Glucose 63 L Calcium 7.7 L Magnesium 1.50 L Total Bilirubin 1.80 H Total Protein 4.8 L Albumin 2.5 L Crossmatch 03/22/20 03/22/20 03/23/20 12:58 17:11 00:13 WBC RBC Hgb 8.9 L Hct 26.0 L MCHC RDW Lymph % (Auto) Graham % (Auto) Baso % (Auto) Lymph # (Auto) Graham # (Auto) Baso # (Auto) Seg Neutrophils % Seg Neutrophils # INR Fibrinogen 582 H Sodium Carbon Dioxide Creatinine Glucose POC Glucose 66 L Calcium Magnesium Total Bilirubin Total Protein Albumin Crossmatch 03/23/20 03/23/20 19:09 19:09 WBC 12.6 H RBC 2.98 L Hgb 8.8 L Hct 26.5 L MCHC RDW 16.2 H Lymph % (Auto) Graham % (Auto) Baso % (Auto) Lymph # (Auto) Graham # (Auto) Baso # (Auto) Seg Neutrophils % Seg Neutrophils # INR Fibrinogen Sodium Carbon Dioxide Creatinine 0.5 L Glucose POC Glucose Calcium 8.3 L Magnesium Total Bilirubin Total Protein 5.2 L Albumin 2.9 L Crossmatch Allied health notes reviewed: nursing
== END 2020-03-24 15:40 | disposition home or self-care (01) | DRG 765 ==
LOC: LD 12:16 → CC1 03-21 14:09 → OB 03-22 19:02
PROVIDERS: ADMIT Obstetrics & Gynecology; ATTEND Obstetrics & Gynecology
PROC: 3E0R3BZ Introduction of Anesthetic Agent into Spinal Canal, Percutaneous Approach (ICD-10-PCS; 2020-03-20)
PROC: 00HU33Z Insertion of Infusion Device into Spinal Canal, Percutaneous Approach (ICD-10-PCS; 2020-03-20)
PROC: 10D00Z1 Extraction of Products of Conception, Low, Open Approach (ICD-10-PCS; principal; 2020-03-21)
PROC: 0UT98ZZ Resection of Uterus, Via Natural or Artificial Opening Endoscopic (ICD-10-PCS; 2020-03-21)
PROC: 0UT08ZZ Resection of Right Ovary, Via Natural or Artificial Opening Endoscopic (ICD-10-PCS; 2020-03-21)
PROC: 0UT58ZZ Resection of Right Fallopian Tube, Via Natural or Artificial Opening Endoscopic (ICD-10-PCS; 2020-03-21)
PROC: 30233K1 Transfusion of Nonautologous Frozen Plasma into Peripheral Vein, Percutaneous Approach (ICD-10-PCS; 2020-03-21)
PROC: 30233N1 Transfusion of Nonautologous Red Blood Cells into Peripheral Vein, Percutaneous Approach (ICD-10-PCS; 2020-03-21)
DX: O32.4XX0 Maternal care for high head at term, not applicable or unspecified (principal); O41.1230 Chorioamnionitis, third trimester, not applicable or unspecified; O40.3XX0 Polyhydramnios, third trimester, not applicable or unspecified; O24.429 Gestational diabetes mellitus in childbirth, unspecified control; O99.52 Diseases of the respiratory system complicating childbirth; O99.824 Streptococcus B carrier state complicating childbirth; E66.9 Obesity, unspecified; O99.02 Anemia complicating childbirth; O99.214 Obesity complicating childbirth; Z3A.38 38 weeks gestation of pregnancy; Z37.0 Single live birth; O72.3 Postpartum coagulation defects; D62 Acute posthemorrhagic anemia; Z79.899 Other long term (current) drug therapy; Z83.3 Family history of diabetes mellitus
CPT/HCPCS: 36415; 36430; 80053; 82962; 83735; 84100; 85014; 85018; 85025; 85027; 85384; 85610; 85730; 86706; 86850; 86900; 86901; 86920; 88307; G0378; A6250; J0290; J0330; J0690; J1170; J1580; J1885; J2210; J2274; J2370; J2405; J2590; J2704; J2765; J3490; J7040; J7120; P9016; P9017; U0003